=== PATIENT | male | born 1960 | race Caucasian/White ===

== ENCOUNTER 2016-04-24 00:56 | Emergency (ER) | payer BC ==
[~2016-04-24] VITALS: Ht 177.8 cm; Wt 91.2 kg
[~2016-04-24 00:56] MED LIST: ATOR40TA59 PO; CRESTOR20 MG PO; CYCL10TA2 PO; HYDR-971 PO; INSU100I13 SQ; INSU300I SQ; LISI40TA PO; METF10002 PO; NAPR250T2 PO; OMEP20CA9 PO; OMEP20TA PO; ONDA4TAB7 PO; OXYC-244 PO; SERT100T8 PO; SITA100T PO; TAMS0.4C2 PO; TAMS0.4C97 PO
[2016-04-24 01:48] LABS: BASO # 0.1 x10^3/uL (0.0-0.2); BASO % 1 % (0-3); EOS % 4 % (0-3); HEMATOCRIT 42.7 % (39.0-53.0); LYMPH # 1.5 x10^3/uL (1.0-4.8); LYMPH % 19 % (24-48); MEAN CORPUSCULAR HEMOGLOBIN 32 pg (25-35); MEAN CORPUSCULAR HGB CONC 35 g/dL (31-37); MEAN CORPUSCULAR VOLUME 92 fL (79-100); MONO % 8 % (0-9); NEUT % 68 % (31-73); PLATELET COUNT 168 x10^3/uL (140-400); RED BLOOD COUNT 4.67 x10^6/uL (4.30-5.70); RED CELL DISTRIBUTION WIDTH 12.5 % (11.5-14.5); WHITE BLOOD COUNT 8.1 x10^3/uL (4.0-11.0)
[2016-04-24 01:59] LABS: CALCIUM 9.3 mg/dL (8.5-10.1); CREATININE 1.1 mg/dL (0.7-1.3); GFR 69.8; POTASSIUM 3.3 mmol/L (3.5-5.1)
--- NOTE | 2016-04-24 03:13 | PHYS DOC ---
Past Medical History Past Medical History: Diabetes-Type II, GERD, High Cholesterol, Hypertension, Kidney Stone, Other Additional Past Medical Histor: CHRONIC BACK PAIN, kidney stones Past Surgical History: Other Additional Past Surgical Histo: lithotripsy, back Alcohol Use: Heavy Additional Information: drinking approx 1/5 whiskey weekly Drug Use: Marijuana Adult General Chief Complaint Chief Complaint: BLOOD SUGAR PROBLEM HPI HPI Patient is a 56 year old male who presents by EMS for fatigue and altered mental status. His called EMS for concern of low blood sugar. He is on a long acting insulin only and has had a few episodes of hypoglycemia like this. He becomes sleepy and clammy. EMS arrived and he had a blood sugar in the 50s, of which she was given D50 IV with improvement of blood sugar to 110s. He denies headache, vision changes, numbness, tingling, weakness, chest pain, abdominal pain, nausea or vomiting, diarrhea, dysuria. He does mention having some bloody urine and flank pain over the past 2 days, but he has been asymptomatic of this today. He did not come here for evaluation of kidney stones, but he thinks this is related to his chronic kidney stones. He does not want to be evaluated for this as his symptoms are controlled. Review of Systems Review of Systems Constitutional: Denies fever or chills [] Eyes: Denies change in visual acuity, redness, or eye pain [] HENT: Denies nasal congestion or sore throat [] Respiratory: Denies cough or shortness of breath [] Cardiovascular: No additional information not addressed in HPI [] GI: Denies abdominal pain, nausea, vomiting, bloody stools or diarrhea [] : Denies dysuria or hematuria [] Musculoskeletal: Denies back pain or joint pain [] Integument: Denies rash or skin lesions [] Neurologic: Denies headache, focal weakness or sensory changes [] Endocrine: Denies polyuria or polydipsia [] Allergies Allergies Allergies Coded Allergies Type Severity Reaction Last Updated Verified Sulfa (Sulfonamide Antibiotics) Allergy Severe ADLER HIMA SYNDROME Yes Physical Exam Physical Exam Constitutional: Well developed, well nourished, no acute distress, non-toxic appearance. [] HENT: Normocephalic, atraumatic, bilateral external ears normal, oropharynx moist, no oral exudates, nose normal. [] Eyes: PERRLA, EOMI. [] Neck: Normal range of motion, supple. [] Cardiovascular:Heart rate regular rhythm [] Lungs & Thorax: Bilateral breath sounds clear to auscultation [] Abdomen: Bowel sounds normal, soft, no tenderness. [] Skin: Warm, dry, no erythema, no rash. [] Back: No tenderness, no CVA tenderness. [] Extremities: ROM intact, no edema. [] Neurologic: Alert and oriented X 3, normal motor function, normal sensory function, no focal deficits noted, cranial nerves II through XII intact. [] Psychologic: Affect normal, judgement normal, mood normal. [] Current Patient Data Vital Signs Vital Signs Date Time Temp Pulse Resp B/P Pulse Ox O2 Delivery O2 Flow Rate FiO2 04/24/16 03:23 95 20 137/93 98 04/24/16 00:56 97.0 Room Air 97.0 Lab Values Laboratory Tests Test 04/24/16 01:01 04/24/16 01:40 04/24/16 03:06 Glucose (Fingerstick) 116mg/dL (70-99) H 200mg/dL (70-99) H White Blood Count 8.1x10^3/uL (4.0-11.0) Red Blood Count 4.67x10^6/uL (4.30-5.70) Hemoglobin 15.0g/dL (13.0-17.5) Hematocrit 42.7% (39.0-53.0) Mean Corpuscular Volume 92fL (79-100) Mean Corpuscular Hemoglobin 32pg (25-35) Mean Corpuscular Hemoglobin Concent 35g/dL (31-37) Red Cell Distribution Width 12.5% (11.5-14.5) Platelet Count 168x10^3/uL (140-400) Neutrophils (%) (Auto) 68% (31-73) Lymphocytes (%) (Auto) 19% (24-48) L Monocytes (%) (Auto) 8% (0-9) Eosinophils (%) (Auto) 4% (0-3) H Basophils (%) (Auto) 1% (0-3) Neutrophils # (Auto) 5.5x10^3uL (1.8-7.7) Lymphocytes # (Auto) 1.5x10^3/uL (1.0-4.8) Monocytes # (Auto) 0.6x10^3/uL (0.0-1.1) Eosinophils # (Auto) 0.3x10^3/uL (0.0-0.7) Basophils # (Auto) 0.1x10^3/uL (0.0-0.2) Sodium Level 139mmol/L (136-145) Potassium Level 3.3mmol/L (3.5-5.1) L Chloride Level 103mmol/L (98-107) Carbon Dioxide Level 23mmol/L (21-32) Anion Gap 13 (6-14) Blood Urea Nitrogen 33mg/dL (8-26) H Creatinine 1.1mg/dL (0.7-1.3) Estimated GFR (Cockcroft-Gault) 69.8 Glucose Level 113mg/dL (70-99) H Calcium Level 9.3mg/dL (8.5-10.1) Laboratory Tests 04/24/16 01:40 Laboratory Tests 04/24/16 01:40 Course & Med Decision Making Course & Med Decision Making Pertinent Labs and Imaging studies reviewed. (See chart for details) Upon arrival here, he is alert. He was given food to treat hypoglycemia. Laboratory evaluation is unremarkable. He has maintained a normal blood glucose during his ED stay. He would like to go home and monitor his blood sugar closely. He will follow-up with his primary care doctor for diabetic management. Return precautions discussed. He and understand and agree with plan. Dragon Disclaimer Dragon Disclaimer This electronic medical record was generated, in whole or in part, using a voice recognition dictation system. Departure Departure Impression: Primary Impression: Hypoglycemia Disposition: HOME, SELF-CARE Condition: STABLE Referrals: MARLENI ANGELA (PCP) Patient Instructions: Hypoglycemia, [id number] Additional Instructions: Follow-up with your primary care doctor. Return for any concerns. Su SCHAFFER MD Apr 24, 2016 03:13
[2016-04-24 03:23] VITALS: BP 137/93
== END 2016-04-24 03:23 | disposition home or self-care (01) ==
LOC: ER 01:49
DX: E11.649 Type 2 diabetes mellitus with hypoglycemia without coma (principal); K21.9 Gastro-esophageal reflux disease without esophagitis; E78.00 Pure hypercholesterolemia, unspecified; I10 Essential (primary) hypertension; G89.29 Other chronic pain; F12.10 Cannabis abuse, uncomplicated; Z88.2 Allergy status to sulfonamides
CPT/HCPCS: 36415; 80048; 82947; 85027; 99284

== ENCOUNTER 2016-05-29 22:00 | Emergency (ER) | payer BC ==
[~2016-05-29] VITALS: Ht 180.3 cm; Wt 87.1 kg
[2016-05-29] MEDS ORDERED: IV NORMAL SALINE 1000ML BAG 1,000 ML IV SCH (22:06)
[2016-05-29 22:29] LABS: BILIRUBIN,URINE NEGATIVE (NEG); GLUCOSE,URINE NEGATIVE (NEG); NITRITE,URINE NEGATIVE (NEG); PH,URINE 5.5; PROTEIN,URINE NEGATIVE (NEG-TRACE)
[2016-05-29 22:36] LABS: BASO % 1 % (0-3); EOS % 5 % (0-3); HEMATOCRIT 43.2 % (39.0-53.0); HEMOGLOBIN 14.9 g/dL (13.0-17.5); LYMPH # 0.5 x10^3/uL (1.0-4.8); LYMPH % 7 % (24-48); MEAN CORPUSCULAR HEMOGLOBIN 32 pg (25-35); MEAN CORPUSCULAR HGB CONC 35 g/dL (31-37); MEAN CORPUSCULAR VOLUME 92 fL (79-100); MONO % 5 % (0-9); NEUT % 83 % (31-73); PLATELET COUNT 179 x10^3/uL (140-400); RED BLOOD COUNT 4.68 x10^6/uL (4.30-5.70); RED CELL DISTRIBUTION WIDTH 12.8 % (11.5-14.5); WHITE BLOOD COUNT 6.5 x10^3/uL (4.0-11.0)
[2016-05-29 22:43] LABS: RBC,URINE 20-40 /HPF (0-2)
[2016-05-29 22:44] LABS: BACTERIA,URINE 0 /HPF (0-FEW); SQUAMOUS EPITHELIAL CELL,UR OCC /LPF; WBC,URINE OCC /HPF (0-4)
[2016-05-29 22:47] LABS: CALCIUM 9.6 mg/dL (8.5-10.1); GFR 77.9; POTASSIUM 4.3 mmol/L (3.5-5.1)
[2016-05-29 22:53] LABS: ALBUMIN 3.8 g/dL (3.4-5.0); TOTAL BILIRUBIN 1.3 mg/dL (0.2-1.0); TOTAL PROTEIN 7.5 g/dL (6.4-8.2)
[2016-05-29] MEDS ORDERED: HYDROMORPHONE 2 MG/ML VIAL. IV ONE (23:15)
[2016-05-29] MEDS ORDERED: ONDANSETRON PF 4 MG/2 ML VIAL. IV ONE (23:15)
[2016-05-29] MEDS ORDERED: KETOROLAC 15 MG/ML VIAL. IV ONE (23:15)
--- NOTE | 2016-05-29 23:51 | RAD ---
CT abdomen pelvis without contrast dated 05/29/2016. PROCEDURE HISTORY Right flank pain and hematuria. TECHNIQUE Contiguous axial imaging of the abdomen and pelvis performed without the administration of intravenous contrast.Exposure: One or more of the following individualized dose reduction techniques were utilized for this exam: 1. Automated exposure control. 2. Adjustment of the mA and/or kV according to patient size. 3. Use of iterative reconstruction technique. COMPARISON None available at this time FINDINGS Limited images of lung bases are clear. Heart size within normal limits. No pleural or pericardial effusion. Small noncalcified pulmonary nodule left lower lobe on image 17 measures 3 millimeters, nonspecific. Solid abdominal viscera not well evaluated in the absence of contrast material. No apparent attenuation abnormality of the liver or spleen. Pancreas, adrenal glands, gallbladder unremarkable. There is focal cortical scarring at the mid to upper pole right kidney with partially calcified nodule that measures 24 Hounsfield units. Low density lesions of the upper and lower pole, most consistent with cysts. Additional indeterminate nodule medially measuring about 8 millimeters and mean Hounsfield units of 7 seen. There are 2 small stones at the lower pole. On the left, there is a 9 millimeter calcific stone within the mid pole infundibulum. Two additional smaller stones at the left kidney lower pole. No calculus identified along the course of either ureter. Unopacified GI tract normal in caliber and contour. No focal bowel wall thickening. No inflammatory stranding in the mesenteric. No ascites or lymphadenopathy. Appendix within normal limits in caliber. Images of pelvis show nondistended urinary bladder. No free pelvic fluid or pelvic lymphadenopathy. Bone windows show no acute findings. Multilevel spondylosis. IMPRESSION - Bilateral nephrolithiasis, nonobstructive. There is a 9 millimeter calcific stone at the mid pole infundibulum on the left. - Indeterminate low density lesions of the right kidney. Suggest direct comparison a prior exam. Alternatively, a pre and post contrast renal CT could better evaluate. - Small pericardial effusion. Electronically signed by: Chavez Springer (May 29, 2016 23:49:46)
[2016-05-30] MEDS ORDERED: HYDR-2678 PO (00:20)
--- NOTE | 2016-05-30 00:20 | PHYS DOC ---
Past Medical History Past Medical History: Diabetes-Type II, GERD, High Cholesterol, Hypertension, Kidney Stone, Other Additional Past Medical Histor: CHRONIC BACK PAIN, kidney stones Past Surgical History: Other Additional Past Surgical Histo: lithotripsy, back Alcohol Use: Heavy Drug Use: Marijuana Adult General Chief Complaint Chief Complaint: FLANK PAIN HPI HPI Patient is a 56 year old gentleman who presents here today complaining of right flank pain. Patient reports it feels like his prior kidney stones. Patient reports that he was here on March 07 and was diagnosed with a 4 mm stone. Patient reports she's had hematuria for approximately 1-2 days of intermittent pain for the same time. Patient denies any fevers shakes chills. Patient has any diarrhea. Patient is nauseous and has had 1-2 episodes of vomiting. Patient reports his Abdominal Discomfort and Is Right Flank Radiating to His Right Lower Quadrant. Patient Reports Took One Hydrocodone Pressure Whenever Prior to Arrival. Patient Reports She Smokes Marijuana Occasionally. Patient Has Any Alcohol Use. Patient Is a History of Hypertension and Diabetes. Patient Has Had No Abdominal Surgeries. Patient's physical exam is unremarkable except for tenderness to palpation to his right flank and right lower quadrant region. Patient's abdomen is otherwise soft nondistended no rebound or guarding. Patient is not exhibiting any signs or symptoms I be consistent with an acute surgical abdomen. Patient had labs and a CT scan done in the ED. Patient's labs were unremarkable except for RBCs in his urine. Patient's CT scan of his abdomen and pelvis did not reveal any evidence of hydronephrosis or obstructive renal calculi. I discussed with the patient the CT report and I will give him a copy. It does appear that the patient knows about the cysts in his right kidney as well as a large stone in his left kidney. Patient will has an appointment next Tuesday to see his urologist. Patient was given a copy of his CT scan to take with him for review with his urologist. While in the ED the patient was given a shot of Toradol Dilaudid and Zofran as well as saline. Patient is currently pain-free and feels very comfortable with the plan to be discharged home and to follow up with his primary care physician. Review of Systems Review of Systems Constitutional: Denies fever or chills [] Eyes: Denies change in visual acuity, redness, or eye pain [] HENT: Denies nasal congestion or sore throat [] All other review systems are negative except as documented in the history of present illness portion. Current Medications Current Medications Current Medications Medications (Trade) Dose Ordered Sig/Nury Start Time Stop Time Status Last Admin Dose Admin Hydromorphone HCl (Dilaudid) 1 mg 1X ONCE 05/29/16 23:15 05/29/16 23:16 DC 05/29/16 23:21 1 MG Ketorolac Tromethamine (Toradol) 15 mg 1X ONCE 05/29/16 23:15 05/29/16 23:16 DC 05/29/16 23:20 15 MG Ondansetron HCl (Zofran) 4 mg 1X ONCE 05/29/16 23:15 05/29/16 23:16 DC 05/29/16 23:19 4 MG Sodium Chloride (Iv Sodium Chloride 0.9% 1000ml Bag) 1,000 ml @ 1,000 mls/hr Q1H 05/29/16 22:06 05/29/16 23:05 DC 05/29/16 22:25 1,000 MLS/HR Allergies Allergies Allergies Coded Allergies Type Severity Reaction Last Updated Verified Sulfa (Sulfonamide Antibiotics) Allergy Severe ADLER HIMA SYNDROME Yes Physical Exam Physical Exam Constitutional: Well developed, well nourished, no acute distress, non-toxic appearance. [] HENT: Normocephalic, atraumatic, bilateral external ears normal, oropharynx moist, no oral exudates, nose normal. [] Eyes: PERRLA, EOMI, conjunctiva normal, no discharge. [] Neck: Normal range of motion, no tenderness, supple, no stridor. [] Cardiovascular:Heart rate regular rhythm, no murmur [] Lungs & Thorax: Bilateral breath sounds clear to auscultation [] Abdomen: Bowel sounds normal, soft,, no masses, no pulsatile masses. [] Skin: Warm, dry, no erythema, no rash. [] Back: No tenderness, no CVA tenderness. [] Extremities: No tenderness, no cyanosis, no clubbing, ROM intact, no edema. [] Neurologic: Alert and oriented X 3, normal motor function, normal sensory function, no focal deficits noted. [] Psychologic: Affect normal, judgement normal, mood normal. [] Current Patient Data Vital Signs Vital Signs Date Time Temp Pulse Resp B/P Pulse Ox O2 Delivery O2 Flow Rate FiO2 05/29/16 23:03 113 11 125/81 99 Room Air 05/29/16 22:15 98.3 98.3 Lab Values Laboratory Tests Test 05/29/16 22:07 05/29/16 22:23 Urine Collection Type Unknown Urine Color Yellow Urine Clarity Clear Urine pH 5.5 Urine Specific [place] 1.025 Urine Protein Negativemg/dL (NEG-TRACE) Urine Glucose (UA) Negativemg/dL (NEG) Urine Ketones (Stick) Negativemg/dL (NEG) Urine Blood Moderate (NEG) Urine Nitrite Negative (NEG) Urine Bilirubin Negative (NEG) Urine Urobilinogen Dipstick 1.0mg/dL (0.2 mg/dL) Urine Leukocyte Esterase Negative (NEG) Urine RBC 20-40/HPF (0-2) Urine WBC Occ/HPF (0-4) Urine Squamous Epithelial Cells Occ/LPF Urine Bacteria 0/HPF (0-FEW) Urine Mucus Mod/LPF White Blood Count 6.5x10^3/uL (4.0-11.0) Red Blood Count 4.68x10^6/uL (4.30-5.70) Hemoglobin 14.9g/dL (13.0-17.5) Hematocrit 43.2% (39.0-53.0) Mean Corpuscular Volume 92fL (79-100) Mean Corpuscular Hemoglobin 32pg (25-35) Mean Corpuscular Hemoglobin Concent 35g/dL (31-37) Red Cell Distribution Width 12.8% (11.5-14.5) Platelet Count 179x10^3/uL (140-400) Neutrophils (%) (Auto) 83% (31-73) H Lymphocytes (%) (Auto) 7% (24-48) L Monocytes (%) (Auto) 5% (0-9) Eosinophils (%) (Auto) 5% (0-3) H Basophils (%) (Auto) 1% (0-3) Neutrophils # (Auto) 5.4x10^3uL (1.8-7.7) Lymphocytes # (Auto) 0.5x10^3/uL (1.0-4.8) L Monocytes # (Auto) 0.3x10^3/uL (0.0-1.1) Eosinophils # (Auto) 0.3x10^3/uL (0.0-0.7) Basophils # (Auto) 0.0x10^3/uL (0.0-0.2) Sodium Level 139mmol/L (136-145) Potassium Level 4.3mmol/L (3.5-5.1) Chloride Level 102mmol/L (98-107) Carbon Dioxide Level 21mmol/L (21-32) Anion Gap 16 (6-14) H Blood Urea Nitrogen 23mg/dL (8-26) Creatinine 1.0mg/dL (0.7-1.3) Estimated GFR (Cockcroft-Gault) 77.9 BUN/Creatinine Ratio 23 (6-20) H Glucose Level 174mg/dL (70-99) H Calcium Level 9.6mg/dL (8.5-10.1) Total Bilirubin 1.3mg/dL (0.2-1.0) H Aspartate Amino Transferase (AST) 25U/L (15-37) Alanine Aminotransferase (ALT) 21U/L (16-63) Alkaline Phosphatase 142U/L (46-116) H Total Protein 7.5g/dL (6.4-8.2) Albumin 3.8g/dL (3.4-5.0) Albumin/Globulin Ratio 1.0 (1.0-1.7) Lipase 90U/L (73-393) Laboratory Tests 05/29/16 22:23 Laboratory Tests 05/29/16 22:23 EKG EKG [] Radiology/Procedures Radiology/Procedures [] Course & Med Decision Making Course & Med Decision Making Pertinent Labs and Imaging studies reviewed. (See chart for details) [] Dragon Disclaimer Dragon Disclaimer This electronic medical record was generated, in whole or in part, using a voice recognition dictation system. Departure Departure Impression: Primary Impression: Renal calculus, right Disposition: 01 HOME, SELF-CARE Condition: IMPROVED Referrals: MARLENI ANGELA (PCP) Patient Instructions: Abdominal Pain, Kidney Stones Scripts Hydrocodone/Acetaminophen (Lortab 5-325 mg Tablet)1 Each Tablet1 Tab PO PRN Q6HRS PRN PAIN #14 TAB Prov:TAMIKO DELANEY MD 05/30/16 TAMIKO DELANEY MD May 30, 2016 00:20
[2016-05-30 00:38] VITALS: BP 128/76
== END 2016-05-30 00:40 | disposition home or self-care (01) ==
LOC: ER 22:00
DX: N20.0 Calculus of kidney (principal); E11.9 Type 2 diabetes mellitus without complications; E78.00 Pure hypercholesterolemia, unspecified; G89.29 Other chronic pain; I10 Essential (primary) hypertension; K21.9 Gastro-esophageal reflux disease without esophagitis; F12.10 Cannabis abuse, uncomplicated; Z88.2 Allergy status to sulfonamides
CPT/HCPCS: 36415; 74176; 80053; 81001; 83690; 85027; 96361; 96374; 96375; 99285; J1170; J1885; J2405; J7030

== ENCOUNTER 2016-07-03 17:42 | Observation (INO) | payer BC ==
[~2016-07-03] VITALS: Ht 177.8 cm; Wt 91.3 kg
[~2016-07-03 17:42] MED LIST changes: +HYDR-2678 PO
--- NOTE | 2016-07-03 18:23 | PHYS DOC ---
Past Medical History Past Medical History: Anxiety, Diabetes-Type II, GERD, High Cholesterol, Hypertension, Kidney Stone, Other Additional Past Medical Histor: CHRONIC BACK PAIN Past Surgical History: Other Additional Past Surgical Histo: lithotripsy, back,CYSTOSCOPY W/ KIDENY STONE REMOVAL & STENT Alcohol Use: Heavy Additional Information: 2 DRINKS LAST NIGHT Drug Use: Marijuana Adult General Chief Complaint Chief Complaint: NEURO SYMPTOMS/DEFICITS HPI HPI 46-year-old male with a history of type 2 diabetes hypertension and high cholesterol presenting to the emergency department today with generalized weakness and slurred speech with intermittent confusion over the past 4 or 5 days. The patient was recently started on diazepam and buspirone and that is when the patient's symptoms started according to the patient's who is here with him today. She reports him being extra sleepy. Both the patient and his deny him having unilateral focal weakness. His initial symptoms started approximately a week ago however over the past 2-3 days he has been more confused. Location brain/generalized. Duration intermittent. No alleviating factors present. Review of systems is negative for chest pain shortness of breath abdominal pain nausea vomiting diaphoresis fevers or chills. All other review of systems is negative unless otherwise noted in history of present illness. Review of Systems Review of Systems SEE ABOVE. Current Medications Current Medications Current Medications Medications (Trade) Dose Ordered Sig/Nury Start Time Stop Time Status Last Admin Dose Admin Sodium Chloride (Iv Sodium Chloride 0.9% 1000ml Bag) 1,000 ml @ 1,000 mls/hr 1X ONCE 07/03/16 18:30 07/03/16 19:29 DC 07/03/16 18:40 1,000 MLS/HR Allergies Allergies Allergies Coded Allergies Type Severity Reaction Last Updated Verified Sulfa (Sulfonamide Antibiotics) Allergy Severe ADLER HIMA SYNDROME Yes Physical Exam Physical Exam Constitutional: Well developed, well nourished, no acute distress, non-toxic appearance. HENT: Normocephalic, atraumatic, bilateral external ears normal, oropharynx moist, no oral exudates, nose normal. [] Eyes: PERRLA, EOMI, conjunctiva normal, no discharge. [] Neck: Normal range of motion, no tenderness, supple, no stridor. Cardiovascular:Heart rate regular rhythm, no murmur [] Lungs & Thorax: Bilateral breath sounds clear to auscultation Abdomen: Bowel sounds normal, soft, no tenderness, no masses, no pulsatile masses. [] Skin: Warm, dry, no erythema, no rash. [] Back: No tenderness, no CVA tenderness. Extremities: No tenderness, no cyanosis, no clubbing, ROM intact, no edema. [] Neurologic: Mental status: Somnolent but opens his eyes spontaneously. The patient drifts in and out of confusion even during the examination. He is able to stand without assistance. Cranial nerves: Extraocular movements intact, eyebrows wero bilaterally smile symmetric, uvula elevation, shoulder shrug intact, tongue protrusion normal DTRs: 2+ sensation: Unable to assess at this time due to the patient's intermittent confusion. Patient responds to prick sensation in all 4 extremities Strength: 5/5 in upper and lower extremities bilaterally Psychologic: Affect normal, judgement normal, mood normal. Current Patient Data Vital Signs Vital Signs Date Time Temp Pulse Resp B/P Pulse Ox O2 Delivery O2 Flow Rate FiO2 07/03/16 17:45 97.7 107 20 105/74 97 Room Air 97.7 Lab Values Laboratory Tests Test 07/03/16 18:25 White Blood Count 7.2x10^3/uL (4.0-11.0) Red Blood Count 4.20x10^6/uL (4.30-5.70) L Hemoglobin 13.6g/dL (13.0-17.5) Hematocrit 39.6% (39.0-53.0) Mean Corpuscular Volume 94fL (79-100) Mean Corpuscular Hemoglobin 32pg (25-35) Mean Corpuscular Hemoglobin Concent 34g/dL (31-37) Red Cell Distribution Width 13.3% (11.5-14.5) Platelet Count 227x10^3/uL (140-400) Neutrophils (%) (Auto) 66% (31-73) Lymphocytes (%) (Auto) 23% (24-48) L Monocytes (%) (Auto) 8% (0-9) Eosinophils (%) (Auto) 4% (0-3) H Basophils (%) (Auto) 0% (0-3) Neutrophils # (Auto) 4.7x10^3uL (1.8-7.7) Lymphocytes # (Auto) 1.6x10^3/uL (1.0-4.8) Monocytes # (Auto) 0.6x10^3/uL (0.0-1.1) Eosinophils # (Auto) 0.3x10^3/uL (0.0-0.7) Basophils # (Auto) 0.0x10^3/uL (0.0-0.2) Sodium Level 142mmol/L (136-145) Potassium Level 4.1mmol/L (3.5-5.1) Chloride Level 105mmol/L (98-107) Carbon Dioxide Level 25mmol/L (21-32) Anion Gap 12 (6-14) Blood Urea Nitrogen 18mg/dL (8-26) Creatinine 1.4mg/dL (0.7-1.3) H Estimated GFR (Cockcroft-Gault) 52.8 Glucose Level 178mg/dL (70-99) H Serum Osmolality 295mOsm/Kg (279-304) Lactic Acid Level 2.2mmol/L (0.4-2.0) H Calcium Level 9.5mg/dL (8.5-10.1) Total Bilirubin 0.5mg/dL (0.2-1.0) Direct Bilirubin 0.1mg/dL (0.0-0.2) Aspartate Amino Transferase (AST) 21U/L (15-37) Alanine Aminotransferase (ALT) 29U/L (16-63) Alkaline Phosphatase 177U/L (46-116) H Troponin I Quantitative < 0.017ng/mL (0.000-0.055) BQ-Hiu-F-Type Natriuretic Peptide 100pg/mL (0-124) Total Protein 7.5g/dL (6.4-8.2) Albumin 3.6g/dL (3.4-5.0) Lipase 93U/L (73-393) Ethyl Alcohol Level < 10mg/dL (0-10) Laboratory Tests 07/03/16 18:25 Laboratory Tests 07/03/16 18:25 EKG EKG [] Radiology/Procedures Radiology/Procedures [] Course & Med Decision Making Course & Med Decision Making Pertinent Labs and Imaging studies reviewed. (See chart for details) [] 56-year-old male presenting to the emergency department today with slurred speech and intermittent confusion over the past week essentially with a worsening progression slowly. Initial vital signs showed that he was afebrile with tachycardia. Otherwise mild hypotension present. Pertinent physical exam showed negative Kernig sign and negative Brudzinski sign no neck stiffness present. No evidence of petechiae in the lower extremities. It is possible that the patient's use of benzodiazepines mixed with SSRIs have caused the patient's condition though at this point time I feel it is important to rule out stroke. Head CT unremarkable. Blood glucose normal. Blood work sent which was unremarkable other than an elevated lactic acidosis. The patient clinically did not present with suspected infection so did not enter into our sepsis protocol. I did feel the patient was hypovolemic and thus ordered volume resuscitation. I discussed the case with Dr. Bowie who agreed to see the patient. I then admitted the patient to our hospital for further evaluation workup and care. Neurology consult placed. Dragon Disclaimer Dragon Disclaimer This electronic medical record was generated, in whole or in part, using a voice recognition dictation system. Departure Departure Impression: Primary Impression: Confusion Additional Impressions: Weakness Hypovolemia Lactic acidosis Disposition: ADMITTED INPATIENT Admitting Physician: Nicholas Pate Condition: STABLE Referrals: MARLENI ANGELA (PCP) Problem Qualifiers AYAD LEÓN MD Jul 03, 2016 18:22
[2016-07-03] MEDS ORDERED: IV NORMAL SALINE 1000ML BAG 1,000 ML IV ONE (18:30)
[2016-07-03 18:40] LABS: BASO % 0 % (0-3); EOS % 4 % (0-3); HEMATOCRIT 39.6 % (39.0-53.0); HEMOGLOBIN 13.6 g/dL (13.0-17.5); LYMPH # 1.6 x10^3/uL (1.0-4.8); LYMPH % 23 % (24-48); MEAN CORPUSCULAR HEMOGLOBIN 32 pg (25-35); MEAN CORPUSCULAR HGB CONC 34 g/dL (31-37); MEAN CORPUSCULAR VOLUME 94 fL (79-100); MONO % 8 % (0-9); NEUT % 66 % (31-73); PLATELET COUNT 227 x10^3/uL (140-400); RED CELL DISTRIBUTION WIDTH 13.3 % (11.5-14.5); WHITE BLOOD COUNT 7.2 x10^3/uL (4.0-11.0)
[2016-07-03] MEDS ORDERED: ONDANSETRON PF 4 MG/2 ML VIAL. IV PRN ×2 (18:45→19:15)
[2016-07-03] MEDS ORDERED: MORPHINE SULFATE 2 MG/ML DISP.SYRIN. IV PRN (18:45)
--- NOTE | 2016-07-03 18:51 | RAD ---
PQRS STATEMENT One or more of the following individualized dose reduction techniques were utilized for this study: 1.Automated exposure control 2.Adjustment of the mA and/or kV according to patient size 3.Use of iterative reconstruction technique CT HEAD Indication: WEAKNESS, SLURRED SPEECH, MEMORY LOSS X1WEEK
NO PRIORSReason: weakness / Spl. Instructions: / History: COMPARISON: None TECHNIQUE: 5 mm contiguous axial images were obtained from the skull base to the vertex in both bone and soft tissue algorithm. FINDINGS: No abnormal attenuation within the brain parenchyma. No evidence of acute intracranial hemorrhage. No extra-axial fluid collections. No mass effect or midline shift.Ventricular size is appropriate. Basal cisterns are patent. No fractures identified. Globes and orbits are within normal limits. Paranasal sinuses and mastoid air cells are clear. IMPRESSION: No acute intracranial abnormality. Electronically signed by: Nazario Matthews (Jul 03, 2016 18:50:28)
[2016-07-03 19:04] LABS: CALCIUM 9.5 mg/dL (8.5-10.1); CREATININE 1.4 mg/dL (0.7-1.3); GFR 52.8; POTASSIUM 4.1 mmol/L (3.5-5.1)
[2016-07-03 19:09] LABS: ALBUMIN 3.6 g/dL (3.4-5.0); DIRECT BILIRUBIN 0.1 mg/dL (0.0-0.2); TOTAL BILIRUBIN 0.5 mg/dL (0.2-1.0); TOTAL PROTEIN 7.5 g/dL (6.4-8.2)
--- NOTE | 2016-07-03 19:13 | PDOC1 ---
History and Physical Date of Admission Date of Admission 07/03/16 Identification/Chief Complaint Chief Complaint slurry speak, weakness Problems: Source Source: Caregiver, Chart review, Patient History of Present Illness History of Present Illness HPI HPI 46-year-old male with a history of type 2 diabetes hypertension and high cholesterol presenting to the emergency department today with generalized weakness and slurred speech today. Pt is a poor historian. He said he has been taking zoloft for a long time, recently started taking diazempam and burspirone this week, since then , feels weak, less energy, sleep more, low po intake. TOday, He was found slurry speech and more confused. He also c/o right side weakness for 1 month. denies fever,vomiting, but + chills and nausea. also use [place]. Past Medical History Cardiovascular: HTN, Hyperlipidemia GI: GERD Renal/: Other Endocrine: Diabetes Past Surgical History Past Surgical History lithotripsy, back,CYSTOSCOPY W/ KIDENY STONE REMOVAL & STENT Family History Family History: No Significant Social History Smoke: No ALCOHOL: rare Current Problem List Problem List Problems Medical Problems: (1) Confusion Status: Acute (2) Weakness Status: Acute Current Medications Current Medications Current Medications Medications (Trade) Dose Ordered Sig/Nury Start Time Stop Time Status Last Admin Dose Admin Morphine Sulfate 2 mg PRN Q2HR PRN 07/03/16 18:45 07/04/16 18:44 Ondansetron HCl (Zofran) 4 mg PRN Q8HRS PRN 07/03/16 18:45 07/04/16 18:44 Sodium Chloride (Iv Sodium Chloride 0.9% 1000ml Bag) 1,000 ml @ 1,000 mls/hr 1X ONCE 07/03/16 18:30 07/03/16 19:29 07/03/16 18:40 1,000 MLS/HR Allergies Allergies Allergies Coded Allergies Type Severity Reaction Last Updated Verified Sulfa (Sulfonamide Antibiotics) Allergy Severe ADLER HIMA SYNDROME Yes ROS Review of System CONSTITUTIONAL: No fever or chills EYES: No recent changes SKIN: No rash or itching CARDIOVASCULAR: No chest pain, syncope, palpitations, or edema RESPIRATORY: No SOB or cough GASTROINTESTINAL: No nausea, vomiting or abdominal pain NEUROLOGICAL: No headaches or weakness ENDOCRINE: No cold or heat intolerance GENITOURINARY: No urgency or frequency of urination MUSCULOSKELETAL: No back pain or joint pain LYMPHATICS: No enlarged lymph nodes PSYCHIATRIC: No anxiety or depression Physical Exam Physical Exam GEN.: No apparent distress. Alert and oriented. drowsy HEENT: Head is normocephalic, atraumatic NECK: Supple. LUNGS: Clear to auscultation. HEART: RRR, S1, S2 present. Peripheral pulses intact ABDOMEN: Soft, nontender. Positive bowel sounds. EXTREMITIES: Without any cyanosis. NEUROLOGIC: Normal speech, normal tone PSYCHIATRIC: Normal affect, normal mood. SKIN: No ulcerations Vitals Vitals Vital Signs Date Time Temp Pulse Resp B/P Pulse Ox O2 Delivery O2 Flow Rate FiO2 07/03/16 17:45 97.7 107 20 105/74 97 Room Air 97.7 Labs Labs Laboratory Tests Test 07/03/16 18:25 White Blood Count 7.2x10^3/uL (4.0-11.0) Red Blood Count 4.20x10^6/uL (4.30-5.70) Hemoglobin 13.6g/dL (13.0-17.5) Hematocrit 39.6% (39.0-53.0) Mean Corpuscular Volume 94fL (79-100) Mean Corpuscular Hemoglobin 32pg (25-35) Mean Corpuscular Hemoglobin Concent 34g/dL (31-37) Red Cell Distribution Width 13.3% (11.5-14.5) Platelet Count 227x10^3/uL (140-400) Neutrophils (%) (Auto) 66% (31-73) Lymphocytes (%) (Auto) 23% (24-48) Monocytes (%) (Auto) 8% (0-9) Eosinophils (%) (Auto) 4% (0-3) Basophils (%) (Auto) 0% (0-3) Neutrophils # (Auto) 4.7x10^3uL (1.8-7.7) Lymphocytes # (Auto) 1.6x10^3/uL (1.0-4.8) Monocytes # (Auto) 0.6x10^3/uL (0.0-1.1) Eosinophils # (Auto) 0.3x10^3/uL (0.0-0.7) Basophils # (Auto) 0.0x10^3/uL (0.0-0.2) Laboratory Tests Test 07/03/16 18:25 White Blood Count 7.2x10^3/uL (4.0-11.0) Red Blood Count 4.20x10^6/uL (4.30-5.70) Hemoglobin 13.6g/dL (13.0-17.5) Hematocrit 39.6% (39.0-53.0) Mean Corpuscular Volume 94fL (79-100) Mean Corpuscular Hemoglobin 32pg (25-35) Mean Corpuscular Hemoglobin Concent 34g/dL (31-37) Red Cell Distribution Width 13.3% (11.5-14.5) Platelet Count 227x10^3/uL (140-400) Neutrophils (%) (Auto) 66% (31-73) Lymphocytes (%) (Auto) 23% (24-48) Monocytes (%) (Auto) 8% (0-9) Eosinophils (%) (Auto) 4% (0-3) Basophils (%) (Auto) 0% (0-3) Neutrophils # (Auto) 4.7x10^3uL (1.8-7.7) Lymphocytes # (Auto) 1.6x10^3/uL (1.0-4.8) Monocytes # (Auto) 0.6x10^3/uL (0.0-1.1) Eosinophils # (Auto) 0.3x10^3/uL (0.0-0.7) Basophils # (Auto) 0.0x10^3/uL (0.0-0.2) VTE Prophylaxis Ordered VTE Prophylaxis Devices: Yes VTE Pharmacological Prophylaxi: Yes Assessment/Plan Assessment/Plan 1. AMS, slurry speech, confusion , 2/2 interaction of polypharm 2. drug abuse with marijuana 3. HTN 4. dm2 5. anxiety 5. gerd 7. HLD 8. right side weakness 1 month, subjective plan: 1. brain mri 2. neuro consult 2. need home meds 4. avoid sedative meds ssi for now dvt ppx GERRY SINHA MD Jul 03, 2016 19:13
[2016-07-03] MEDS ORDERED: DEXTROSE 50% 25 GM / 50ML DISP.SYRIN. IV PRN (19:15)
[2016-07-03] MEDS ORDERED: ACETAMINOPHEN 325 MG TABLET. PO PRN (19:15)
[2016-07-03] MEDS ORDERED: hydrALAZINE 20 MG/ML VIAL. IVP PRN (19:15)
[2016-07-03] MEDS ORDERED: GADOBUTROL 10 MMOL/10 ML VIAL IV ONE (20:30)
--- NOTE | 2016-07-03 20:31 | RAD ---
BRAIN WO/W CONTRAST Indication: NO PRIORS..GAVE 9ML GADAVIST...PT C/O CONFUSION AND GENERALIZED WEAKNESS...ECT 4696 Reason: INTERMITTENT CONFUSION AND SLURRED SPEECH EVAL FOR STROKE / Spl. Instructions: / History: COMPARISON: CT head from earlier the same date TECHNIQUE: Axial diffusion weighted imaging was obtained. Additional sagittal T1, axial T1, axial FLAIR, and axial T2 weighted imaging of the brain was also performed. Postcontrast T1 weighted imaging was also performed after intravenous administration of gadolinium based contrast. FINDINGS: There are few small foci of FLAIR signal hyperintensity in the periventricular white matter but these are nonspecific and probably related to sequelae of mild chronic small vessel ischemic disease. No abnormal intracranial enhancement. No evidence of acute intracranial hemorrhage. No restricted diffusion to indicate acute infarct. No extra-axial fluid collections. No midline shift or mass effect. Ventricular size is appropriate. Midline structures have a normal anatomic configuration. Pituitary gland and infundibulum are unremarkable. Basal cisterns are patent. Arterial flow voids at the skull base and major dural venous sinuses are maintained. Globes and orbits are unremarkable. There is very mild mucosal thickening of the ethmoid air cells. IMPRESSION: No acute intracranial abnormality. No abnormal enhancement or mass. Electronically signed by: Nazario Matthews (Jul 03, 2016 20:30:19)
[2016-07-03 21:00] VITALS: BP 118/73
[2016-07-03] MEDS: INSULIN ASPART 300 UNITS/3 ML INSULN.PEN SQ SCH (21:00)
[2016-07-03 21:21] LABS: BILIRUBIN,URINE NEGATIVE (NEG); GLUCOSE,URINE NEGATIVE (NEG); NITRITE,URINE NEGATIVE (NEG); PH,URINE 5.5; PROTEIN,URINE NEGATIVE (NEG-TRACE); UROBILINOGEN,URINE 0.2 mg/dL (0.2 mg/dL)
[2016-07-03 21:28] LABS: BARBITURATES NEG (NEG); BENZODIAZEPINES POS (NEG); CANNABINOIDS POS (NEG); COCAINE NEG (NEG); METHADONE NEG (NEG); OPIATES NEG (NEG); PHENCYCLIDINE NEG (NEG)
[2016-07-03 21:29] LABS: ETHANOL, URINE NEG (NEG)
[2016-07-03 21:58] LABS: BACTERIA,URINE FEW /HPF (0-FEW); RBC,URINE 20-40 /HPF (0-2); SQUAMOUS EPITHELIAL CELL,UR FEW /LPF
[2016-07-03] MEDS ORDERED: LISI10TA2 PO (22:38)
[2016-07-03] MEDS ORDERED: SENN8.6T3 (22:38)
[2016-07-03] MEDS ORDERED: MECL25TA3 (22:38)
[2016-07-03] MEDS ORDERED: DIAZ5TAB4 PO (22:38)
[2016-07-03] MEDS ORDERED: GABA100C6 PO (22:38)
[2016-07-03] MEDS ORDERED: BUPR300T4 (22:38)
[2016-07-03] MEDS ORDERED: ROSUVASTATIN CA20 MG PO (22:38)
[2016-07-03] MEDS ORDERED: METF100010 (22:38)
[2016-07-03] MEDS ORDERED: TRAZ50TA15 (22:38)
[2016-07-03 23:00] VITALS: BP 118/73
[2016-07-04 03:00] VITALS: BP 131/84
[2016-07-04] MEDS ORDERED: BUPR150T6 PO (03:00)
[2016-07-04] MEDS ORDERED: HYOS0.126 SL (03:00)
[2016-07-04] MEDS ORDERED: OMEP40CA5 PO (03:04)
[2016-07-04 05:17] LABS: BASO # 0.1 x10^3/uL (0.0-0.2); BASO % 2 % (0-3); EOS % 5 % (0-3); HEMATOCRIT 37.1 % (39.0-53.0); HEMOGLOBIN 12.6 g/dL (13.0-17.5); LYMPH # 1.8 x10^3/uL (1.0-4.8); LYMPH % 28 % (24-48); MEAN CORPUSCULAR HEMOGLOBIN 32 pg (25-35); MEAN CORPUSCULAR HGB CONC 34 g/dL (31-37); MEAN CORPUSCULAR VOLUME 95 fL (79-100); MONO % 8 % (0-9); NEUT % 58 % (31-73); PLATELET COUNT 207 x10^3/uL (140-400); RED BLOOD COUNT 3.92 x10^6/uL (4.30-5.70); RED CELL DISTRIBUTION WIDTH 13.7 % (11.5-14.5); WHITE BLOOD COUNT 6.2 x10^3/uL (4.0-11.0)
[2016-07-04 05:54] LABS: CALCIUM 8.7 mg/dL (8.5-10.1); CREATININE 1.4 mg/dL (0.7-1.3); GFR 52.8; POTASSIUM 4.1 mmol/L (3.5-5.1)
[2016-07-04] MEDS: INSULIN ASPART 300 UNITS/3 ML INSULN.PEN SQ SCH ×2 (07:30→11:30)
[2016-07-04 07:39] VITALS: BP 101/65
[2016-07-04] MEDS ORDERED: POTA10TA10 PO (08:25)
--- NOTE | 2016-07-04 09:19 | RAD ---
Portable AP upright view CXR: Clinical indications: CVA. Weakness. Comparison: January 20, 2016. Findings: No acute lung infiltrate or pleural effusion or pulmonary edema or lung mass or pneumothorax is seen. The heart size, pulmonary vasculature, mediastinum and both darling are unremarkable. Impression: No acute radiographic abnormality is seen.
[2016-07-04 10:37] VITALS: BP 134/86
[2016-07-04] MEDS ORDERED: HYDROCODONE/APAP 5/325MG TABLET. PO PRN (11:45)
[2016-07-04] MEDS ORDERED: SENNOSIDES 8.6 MG TABLET PO PRN (11:45)
[2016-07-04] MEDS ORDERED: NAPROXEN 250 MG TABLET PO PRN (11:45)
--- NOTE | 2016-07-04 12:29 | EKG ---
[facility] [address] [place] [address] Test Date: 2016-07-03 Test Time: 18:24:46 Pat Name: SARI BELTRE Department: Room: Gender: M [employer] Tender: : 1960 Requested By: AYAD LEÓN Order Number: [id number] Reading MD: Measurements Intervals [place] Rate: 86 P: 38 [place]: 156 QRS: 15 QRSD: 92 T: 19 QT: 352 QTc: 424 Interpretive Statements SINUS RHYTHM NO SPECIFIC ECG ABNORMALITIES RI6.01 No previous ECG available for comparison
[2016-07-04 12:37] VITALS: BP 134/86
[2016-07-04] MEDS ORDERED: PANTOPRAZOLE 40 MG TABLET.DR. PO SCH (13:00)
[2016-07-04] MEDS ORDERED: TAMSULOSIN 0.4 MG CAP.ER.24H. PO SCH (13:00)
[2016-07-04] MEDS ORDERED: LISINOPRIL 10 MG TABLET PO SCH (13:00)
[2016-07-04] MEDS ORDERED: POTASSIUM CHLORIDE 20 MEQ TABLET.ER. PO SCH (13:00)
[2016-07-04] MEDS ORDERED: SERTRALINE 50 MG TABLET. PO SCH (13:00)
[2016-07-04] MEDS ORDERED: LINAGLIPTIN 5 MG TABLET PO SCH (13:00)
[2016-07-04] MEDS ORDERED: IV NORMAL SALINE 1000ML BAG 1,000 ML IV ONE (13:00)
--- NOTE | 2016-07-04 13:03 | PDOC ---
PROGRESS NOTES Chief Complaint Chief Complaint 1. AMS, slurry speech, confusion , 2/2 interaction of polypharm 2. drug abuse with marijuana 3. HTN 4. dm2 5. anxiety 5. gerd 7. HLD 8. right side weakness 1 month, subjective 9. JACEY, vasomotor plan: 1. brain mri neg 2. neuro consult pending 2. need home meds 4. avoid sedative meds, hold most sedative meds, only restart zoloft for now hold naproxen, ivf ssi for now lantus 10u qhs, SSI dvt ppx dc tmr History of Present Illness History of Present Illness cr 1.4 still very sleepy Vitals Vitals Vital Signs Date Time Temp Pulse Resp B/P Pulse Ox O2 Delivery O2 Flow Rate FiO2 07/04/16 12:37 93 134/86 07/04/16 10:37 97.5 20 98 Room Air 97.5 Physical Exam General: Alert, Oriented X3, Cooperative Heart: Regular rate, Normal S1 Lungs: Clear Abdomen: Normal bowel sounds, Soft Extremities: No clubbing, No cyanosis Labs LABS Laboratory Tests Test 07/03/16 18:25 07/03/16 21:10 07/03/16 21:15 07/04/16 04:34 White Blood Count 7.2x10^3/uL (4.0-11.0) Red Blood Count 4.20x10^6/uL (4.30-5.70) Hemoglobin 13.6g/dL (13.0-17.5) Hematocrit 39.6% (39.0-53.0) Mean Corpuscular Volume 94fL (79-100) Mean Corpuscular Hemoglobin 32pg (25-35) Mean Corpuscular Hemoglobin Concent 34g/dL (31-37) Red Cell Distribution Width 13.3% (11.5-14.5) Platelet Count 227x10^3/uL (140-400) Neutrophils (%) (Auto) 66% (31-73) Lymphocytes (%) (Auto) 23% (24-48) Monocytes (%) (Auto) 8% (0-9) Eosinophils (%) (Auto) 4% (0-3) Basophils (%) (Auto) 0% (0-3) Neutrophils # (Auto) 4.7x10^3uL (1.8-7.7) Lymphocytes # (Auto) 1.6x10^3/uL (1.0-4.8) Monocytes # (Auto) 0.6x10^3/uL (0.0-1.1) Eosinophils # (Auto) 0.3x10^3/uL (0.0-0.7) Basophils # (Auto) 0.0x10^3/uL (0.0-0.2) Sodium Level 142mmol/L (136-145) 143mmol/L (136-145) Potassium Level 4.1mmol/L (3.5-5.1) 4.1mmol/L (3.5-5.1) Chloride Level 105mmol/L (98-107) 107mmol/L (98-107) Carbon Dioxide Level 25mmol/L (21-32) 26mmol/L (21-32) Anion Gap 12 (6-14) 10 (6-14) Blood Urea Nitrogen 18mg/dL (8-26) 17mg/dL (8-26) Creatinine 1.4mg/dL (0.7-1.3) 1.4mg/dL (0.7-1.3) Estimated GFR (Cockcroft-Gault) 52.8 52.8 Glucose Level 178mg/dL (70-99) 156mg/dL (70-99) Serum Osmolality 295mOsm/Kg (279-304) Lactic Acid Level 2.2mmol/L (0.4-2.0) Calcium Level 9.5mg/dL (8.5-10.1) 8.7mg/dL (8.5-10.1) Total Bilirubin 0.5mg/dL (0.2-1.0) Direct Bilirubin 0.1mg/dL (0.0-0.2) Aspartate Amino Transf (AST/SGOT) 21U/L (15-37) Alanine Aminotransferase (ALT/SGPT) 29U/L (16-63) Alkaline Phosphatase 177U/L (46-116) Troponin I Quantitative < 0.017ng/mL (0.000-0.055) CT-Oml-O-Type Natriuretic Peptide 100pg/mL (0-124) Total Protein 7.5g/dL (6.4-8.2) Albumin 3.6g/dL (3.4-5.0) Lipase 93U/L (73-393) Ethyl Alcohol Level < 10mg/dL (0-10) Urine Collection Type Unknown Urine Color Yellow Urine Clarity Clear Urine pH 5.5 Urine Specific [place] 1.020 Urine Protein Negativemg/dL (NEG-TRACE) Urine Glucose (UA) Negativemg/dL (NEG) Urine Ketones (Stick) Negativemg/dL (NEG) Urine Blood Large (NEG) Urine Nitrite Negative (NEG) Urine Bilirubin Negative (NEG) Urine Urobilinogen Dipstick 0.2mg/dL (0.2 mg/dL) Urine Leukocyte Esterase Negative (NEG) Urine RBC 20-40/HPF (0-2) Urine WBC 1-4/HPF (0-4) Urine Squamous Epithelial Cells Few/LPF Urine Bacteria Few/HPF (0-FEW) Urine Hyaline Casts Many/HPF Urine Mucus Mod/LPF Urine Opiates Screen Neg (NEG) Urine Methadone Screen Neg (NEG) Urine Barbiturates Neg (NEG) Urine Phencyclidine Screen Neg (NEG) Urine Amphetamine/Methamphetamine Neg (NEG) Urine Benzodiazepines Screen Pos (NEG) Urine Cocaine Screen Neg (NEG) Urine Cannabinoids Screen Pos (NEG) Urine Ethyl Alcohol Neg (NEG) Glucose (Fingerstick) 104mg/dL (70-99) Test 07/04/16 04:39 07/04/16 07:42 07/04/16 11:47 White Blood Count 6.2x10^3/uL (4.0-11.0) Red Blood Count 3.92x10^6/uL (4.30-5.70) Hemoglobin 12.6g/dL (13.0-17.5) Hematocrit 37.1% (39.0-53.0) Mean Corpuscular Volume 95fL (79-100) Mean Corpuscular Hemoglobin 32pg (25-35) Mean Corpuscular Hemoglobin Concent 34g/dL (31-37) Red Cell Distribution Width 13.7% (11.5-14.5) Platelet Count 207x10^3/uL (140-400) Neutrophils (%) (Auto) 58% (31-73) Lymphocytes (%) (Auto) 28% (24-48) Monocytes (%) (Auto) 8% (0-9) Eosinophils (%) (Auto) 5% (0-3) Basophils (%) (Auto) 2% (0-3) Neutrophils # (Auto) 3.6x10^3uL (1.8-7.7) Lymphocytes # (Auto) 1.8x10^3/uL (1.0-4.8) Monocytes # (Auto) 0.5x10^3/uL (0.0-1.1) Eosinophils # (Auto) 0.3x10^3/uL (0.0-0.7) Basophils # (Auto) 0.1x10^3/uL (0.0-0.2) Glucose (Fingerstick) 168mg/dL (70-99) 187mg/dL (70-99) Review of Systems Review of Systems no fever, chills, sob or chest pain Assessment and Plan Assessmemt and Plan Problems Medical Problems: (1) Confusion Status: Acute (2) Hypovolemia Status: Acute (3) Lactic acidosis Status: Acute (4) Weakness Status: Acute Problems: Comment Review of Relevant I have reviewed the following items david (where applicable) has been applied. Labs Laboratory Tests Test 07/03/16 18:25 07/03/16 21:10 07/03/16 21:15 07/04/16 04:34 White Blood Count 7.2x10^3/uL (4.0-11.0) Red Blood Count 4.20x10^6/uL (4.30-5.70) Hemoglobin 13.6g/dL (13.0-17.5) Hematocrit 39.6% (39.0-53.0) Mean Corpuscular Volume 94fL (79-100) Mean Corpuscular Hemoglobin 32pg (25-35) Mean Corpuscular Hemoglobin Concent 34g/dL (31-37) Red Cell Distribution Width 13.3% (11.5-14.5) Platelet Count 227x10^3/uL (140-400) Neutrophils (%) (Auto) 66% (31-73) Lymphocytes (%) (Auto) 23% (24-48) Monocytes (%) (Auto) 8% (0-9) Eosinophils (%) (Auto) 4% (0-3) Basophils (%) (Auto) 0% (0-3) Neutrophils # (Auto) 4.7x10^3uL (1.8-7.7) Lymphocytes # (Auto) 1.6x10^3/uL (1.0-4.8) Monocytes # (Auto) 0.6x10^3/uL (0.0-1.1) Eosinophils # (Auto) 0.3x10^3/uL (0.0-0.7) Basophils # (Auto) 0.0x10^3/uL (0.0-0.2) Sodium Level 142mmol/L (136-145) 143mmol/L (136-145) Potassium Level 4.1mmol/L (3.5-5.1) 4.1mmol/L (3.5-5.1) Chloride Level 105mmol/L (98-107) 107mmol/L (98-107) Carbon Dioxide Level 25mmol/L (21-32) 26mmol/L (21-32) Anion Gap 12 (6-14) 10 (6-14) Blood Urea Nitrogen 18mg/dL (8-26) 17mg/dL (8-26) Creatinine 1.4mg/dL (0.7-1.3) 1.4mg/dL (0.7-1.3) Estimated GFR (Cockcroft-Gault) 52.8 52.8 Glucose Level 178mg/dL (70-99) 156mg/dL (70-99) Serum Osmolality 295mOsm/Kg (279-304) Lactic Acid Level 2.2mmol/L (0.4-2.0) Calcium Level 9.5mg/dL (8.5-10.1) 8.7mg/dL (8.5-10.1) Total Bilirubin 0.5mg/dL (0.2-1.0) Direct Bilirubin 0.1mg/dL (0.0-0.2) Aspartate Amino Transf (AST/SGOT) 21U/L (15-37) Alanine Aminotransferase (ALT/SGPT) 29U/L (16-63) Alkaline Phosphatase 177U/L (46-116) Troponin I Quantitative < 0.017ng/mL (0.000-0.055) GN-Rat-H-Type Natriuretic Peptide 100pg/mL (0-124) Total Protein 7.5g/dL (6.4-8.2) Albumin 3.6g/dL (3.4-5.0) Lipase 93U/L (73-393) Ethyl Alcohol Level < 10mg/dL (0-10) Urine Collection Type Unknown Urine Color Yellow Urine Clarity Clear Urine pH 5.5 Urine Specific [place] 1.020 Urine Protein Negativemg/dL (NEG-TRACE) Urine Glucose (UA) Negativemg/dL (NEG) Urine Ketones (Stick) Negativemg/dL (NEG) Urine Blood Large (NEG) Urine Nitrite Negative (NEG) Urine Bilirubin Negative (NEG) Urine Urobilinogen Dipstick 0.2mg/dL (0.2 mg/dL) Urine Leukocyte Esterase Negative (NEG) Urine RBC 20-40/HPF (0-2) Urine WBC 1-4/HPF (0-4) Urine Squamous Epithelial Cells Few/LPF Urine Bacteria Few/HPF (0-FEW) Urine Hyaline Casts Many/HPF Urine Mucus Mod/LPF Urine Opiates Screen Neg (NEG) Urine Methadone Screen Neg (NEG) Urine Barbiturates Neg (NEG) Urine Phencyclidine Screen Neg (NEG) Urine Amphetamine/Methamphetamine Neg (NEG) Urine Benzodiazepines Screen Pos (NEG) Urine Cocaine Screen Neg (NEG) Urine Cannabinoids Screen Pos (NEG) Urine Ethyl Alcohol Neg (NEG) Glucose (Fingerstick) 104mg/dL (70-99) Test 07/04/16 04:39 07/04/16 07:42 07/04/16 11:47 White Blood Count 6.2x10^3/uL (4.0-11.0) Red Blood Count 3.92x10^6/uL (4.30-5.70) Hemoglobin 12.6g/dL (13.0-17.5) Hematocrit 37.1% (39.0-53.0) Mean Corpuscular Volume 95fL (79-100) Mean Corpuscular Hemoglobin 32pg (25-35) Mean Corpuscular Hemoglobin Concent 34g/dL (31-37) Red Cell Distribution Width 13.7% (11.5-14.5) Platelet Count 207x10^3/uL (140-400) Neutrophils (%) (Auto) 58% (31-73) Lymphocytes (%) (Auto) 28% (24-48) Monocytes (%) (Auto) 8% (0-9) Eosinophils (%) (Auto) 5% (0-3) Basophils (%) (Auto) 2% (0-3) Neutrophils # (Auto) 3.6x10^3uL (1.8-7.7) Lymphocytes # (Auto) 1.8x10^3/uL (1.0-4.8) Monocytes # (Auto) 0.5x10^3/uL (0.0-1.1) Eosinophils # (Auto) 0.3x10^3/uL (0.0-0.7) Basophils # (Auto) 0.1x10^3/uL (0.0-0.2) Glucose (Fingerstick) 168mg/dL (70-99) 187mg/dL (70-99) Laboratory Tests Test 07/03/16 18:25 07/03/16 21:10 07/03/16 21:15 07/04/16 04:34 White Blood Count 7.2x10^3/uL (4.0-11.0) Red Blood Count 4.20x10^6/uL (4.30-5.70) Hemoglobin 13.6g/dL (13.0-17.5) Hematocrit 39.6% (39.0-53.0) Mean Corpuscular Volume 94fL (79-100) Mean Corpuscular Hemoglobin 32pg (25-35) Mean Corpuscular Hemoglobin Concent 34g/dL (31-37) Red Cell Distribution Width 13.3% (11.5-14.5) Platelet Count 227x10^3/uL (140-400) Neutrophils (%) (Auto) 66% (31-73) Lymphocytes (%) (Auto) 23% (24-48) Monocytes (%) (Auto) 8% (0-9) Eosinophils (%) (Auto) 4% (0-3) Basophils (%) (Auto) 0% (0-3) Neutrophils # (Auto) 4.7x10^3uL (1.8-7.7) Lymphocytes # (Auto) 1.6x10^3/uL (1.0-4.8) Monocytes # (Auto) 0.6x10^3/uL (0.0-1.1) Eosinophils # (Auto) 0.3x10^3/uL (0.0-0.7) Basophils # (Auto) 0.0x10^3/uL (0.0-0.2) Sodium Level 142mmol/L (136-145) 143mmol/L (136-145) Potassium Level 4.1mmol/L (3.5-5.1) 4.1mmol/L (3.5-5.1) Chloride Level 105mmol/L (98-107) 107mmol/L (98-107) Carbon Dioxide Level 25mmol/L (21-32) 26mmol/L (21-32) Anion Gap 12 (6-14) 10 (6-14) Blood Urea Nitrogen 18mg/dL (8-26) 17mg/dL (8-26) Creatinine 1.4mg/dL (0.7-1.3) 1.4mg/dL (0.7-1.3) Estimated GFR (Cockcroft-Gault) 52.8 52.8 Glucose Level 178mg/dL (70-99) 156mg/dL (70-99) Serum Osmolality 295mOsm/Kg (279-304) Lactic Acid Level 2.2mmol/L (0.4-2.0) Calcium Level 9.5mg/dL (8.5-10.1) 8.7mg/dL (8.5-10.1) Total Bilirubin 0.5mg/dL (0.2-1.0) Direct Bilirubin 0.1mg/dL (0.0-0.2) Aspartate Amino Transf (AST/SGOT) 21U/L (15-37) Alanine Aminotransferase (ALT/SGPT) 29U/L (16-63) Alkaline Phosphatase 177U/L (46-116) Troponin I Quantitative < 0.017ng/mL (0.000-0.055) VT-Ene-U-Type Natriuretic Peptide 100pg/mL (0-124) Total Protein 7.5g/dL (6.4-8.2) Albumin 3.6g/dL (3.4-5.0) Lipase 93U/L (73-393) Ethyl Alcohol Level < 10mg/dL (0-10) Urine Collection Type Unknown Urine Color Yellow Urine Clarity Clear Urine pH 5.5 Urine Specific [place] 1.020 Urine Protein Negativemg/dL (NEG-TRACE) Urine Glucose (UA) Negativemg/dL (NEG) Urine Ketones (Stick) Negativemg/dL (NEG) Urine Blood Large (NEG) Urine Nitrite Negative (NEG) Urine Bilirubin Negative (NEG) Urine Urobilinogen Dipstick 0.2mg/dL (0.2 mg/dL) Urine Leukocyte Esterase Negative (NEG) Urine RBC 20-40/HPF (0-2) Urine WBC 1-4/HPF (0-4) Urine Squamous Epithelial Cells Few/LPF Urine Bacteria Few/HPF (0-FEW) Urine Hyaline Casts Many/HPF Urine Mucus Mod/LPF Urine Opiates Screen Neg (NEG) Urine Methadone Screen Neg (NEG) Urine Barbiturates Neg (NEG) Urine Phencyclidine Screen Neg (NEG) Urine Amphetamine/Methamphetamine Neg (NEG) Urine Benzodiazepines Screen Pos (NEG) Urine Cocaine Screen Neg (NEG) Urine Cannabinoids Screen Pos (NEG) Urine Ethyl Alcohol Neg (NEG) Glucose (Fingerstick) 104mg/dL (70-99) Test 07/04/16 04:39 07/04/16 07:42 07/04/16 11:47 White Blood Count 6.2x10^3/uL (4.0-11.0) Red Blood Count 3.92x10^6/uL (4.30-5.70) Hemoglobin 12.6g/dL (13.0-17.5) Hematocrit 37.1% (39.0-53.0) Mean Corpuscular Volume 95fL (79-100) Mean Corpuscular Hemoglobin 32pg (25-35) Mean Corpuscular Hemoglobin Concent 34g/dL (31-37) Red Cell Distribution Width 13.7% (11.5-14.5) Platelet Count 207x10^3/uL (140-400) Neutrophils (%) (Auto) 58% (31-73) Lymphocytes (%) (Auto) 28% (24-48) Monocytes (%) (Auto) 8% (0-9) Eosinophils (%) (Auto) 5% (0-3) Basophils (%) (Auto) 2% (0-3) Neutrophils # (Auto) 3.6x10^3uL (1.8-7.7) Lymphocytes # (Auto) 1.8x10^3/uL (1.0-4.8) Monocytes # (Auto) 0.5x10^3/uL (0.0-1.1) Eosinophils # (Auto) 0.3x10^3/uL (0.0-0.7) Basophils # (Auto) 0.1x10^3/uL (0.0-0.2) Glucose (Fingerstick) 168mg/dL (70-99) 187mg/dL (70-99) Medications Current Medications Sodium Chloride (Iv Sodium Chloride 0.9% 1000ml Bag) 1,000 ml @ 1,000 mls/hr 1X ONCE IV Last administered on 07/03/16 18:40; Start 07/03/16 at 18:30; Stop 07/03/16 at 19:29; Status DC Ondansetron HCl (Zofran) 4 mg PRN Q8HRS PRN IV NAUSEA/VOMITING; Start 07/03/16 at 18:45; Stop 07/03/16 at 19:09; Status DC Morphine Sulfate 2 mg PRN Q2HR PRN IV PAIN; Start 07/03/16 at 18:45; Stop at 18:44 Acetaminophen (Tylenol) 650 mg PRN Q6HRS PRN PO FEVER Last administered on 10:52; Start 07/03/16 at 19:15 Ondansetron HCl (Zofran) 4 mg PRN Q6HRS PRN IV NAUSEA/VOMITING; Start 07/03/16 at 19:15 Insulin Aspart (Novolog) 0-9 UNITS QIDACHS SQ ; Start 07/03/16 at 21:00 Dextrose (Dextrose 50%-Water Syringe) 12.5 gm PRN Q15MIN PRN IV SEE COMMENTS; Start 07/03/16 at 19:15 Hydralazine HCl (Apresoline) 10 mg PRN Q4HRS PRN IVP ELEVATED BP, SEE COMMENTS ; Start 07/03/16 at 19:15 Gadobutrol (Gadavist) 9 mmol 1X ONCE IV Last administered on 07/03/16 20:11; Start 07/03/16 at 20:30; Stop 07/03/16 at 20:31; Status DC Atorvastatin Calcium (Lipitor) 40 mg HS PO ; Start 07/04/16 at 21:00 Acetaminophen/ Hydrocodone Bitart (Lortab 5/325) 1 tab PRN Q6HRS PRN PO PAIN; Start 07/04/16 at 11:45 Lisinopril (Prinivil) 10 mg DAILY PO Last administered on 07/04/16 12:37; Start 07/04/16 at 13:00 Naproxen (Naprosyn) 250 mg PRN BID PRN PO PAIN; Start 07/04/16 at 11:45 Sennosides (Senna) 8.6 mg PRN BID PRN PO CONSTIPATION; Start 07/04/16 at 11:45 Tamsulosin HCl (Flomax) 0.4 mg DAILY PO Last administered on 07/04/16 12:37; Start 07/04/16 at 13:00 Pantoprazole Sodium (Protonix) 40 mg DAILYAC PO Last administered on 07/04/16 12:38; Start 07/04/16 at 13:00 Potassium Chloride (Klor-Con) 20 meq DAILYWBKFT PO Last administered on 12:38; Start 07/04/16 at 13:00 Sertraline HCl (Zoloft) 100 mg DAILY PO ; Start 07/04/16 at 13:00 Linagliptin (Tradjenta) 5 mg DAILY PO Last administered on 07/04/16 12:37; Start 07/04/16 at 13:00 Insulin Detemir (Levemir) 10 units QHS SQ ; Start 07/04/16 at 21:00 Active Scripts Active Lortab 5-325 mg Tablet (Hydrocodone/Acetaminophen) 1 Each Tablet 1 Tab PO PRN Q6HRS PRN Flomax (Tamsulosin Hcl) 0.4 Mg Cap.er.24h 0.4 Mg PO DAILY Zofran (Ondansetron Hcl) 4 Mg Tablet 1 Tab PO Q8HRS PRN Percocet 7.5-325 Mg Tablet (Oxycodone/Acetaminophen) 1 Each Tablet 1 Tab PO PRN Q6HRS PRN Naproxen 250 Mg Tablet 250 Mg PO PRN BID PRN Reported Potassium Chloride 10 Meq Tablet.er 20 Meq PO DAILY Omeprazole 40 Mg Capsule.dr 1 Cap PO DAILY Hyoscyamine Sulfate 0.125 Mg Tab.subl 1 SL PRN Q4HRS PRN Bupropion Xl (Bupropion Hcl) 150 Mg Tab.er.24h 1 Tab PO DAILYWBKFT Rosuvastatin Calcium 20 Mg Tablet 1 PO QHS Trazodone Hcl 50 Mg Tablet Gabapentin 100 Mg Capsule 1 PO QHS Metformin Hcl Er (Metformin Hcl) 1,000 Mg Tab.er.24 Meclizine Hcl 25 Mg Tablet Lisinopril 10 Mg Tablet 1 PO DAILY Senna (Sennosides) 8.6 Mg Tablet Diazepam 5 Mg Tablet 1 PO PRN BID PRN Toumaria eugenia Solostar (Insulin Glargine,Hum.rec.anlog) 300 Unit/1 Ml Insuln.pen 20 Unit SQ DAILY Sertraline Hcl 100 Mg Tablet 100 Mg PO DAILY Januvia (Sitagliptin Phosphate) 100 Mg Tablet 100 Mg PO DAILY Atorvastatin Calcium 40 Mg Tablet 40 Mg PO HS Cyclobenzaprine Hcl 10 Mg Tablet 10 Mg PO TID Vitals/I & O Vital Sign - Last 24 Hours 07/03/16 07/03/16 07/03/16 07/04/16 17:45 21:00 23:00 02:35 Temp 97.7 97.6 97.6 97.7 97.6 97.6 Pulse 107 61 61 Resp 20 21 21 B/P 105/74 118/73 118/73 Pulse Ox 97 100 100 O2 Delivery Room Air Room Air Room Air Room Air 07/04/16 07/04/16 07/04/16 07/04/16 03:00 07:39 08:06 10:37 Temp 98.1 98.1 97.5 98.1 98.1 97.5 Pulse 76 93 93 Resp 20 20 20 B/P 131/84 101/65 134/86 Pulse Ox 98 96 98 O2 Delivery Room Air Room Air Room Air Room Air 07/04/16 12:37 Pulse 93 B/P 134/86 Intake and Output 07/03/16 07/03/16 07/04/16 15:00 23:00 07:00 Intake Total 1000 ml 300 ml Output Total 300 ml Balance 1000 ml 0 ml GERRY SINHA MD Jul 04, 2016 13:03
--- NOTE | 2016-07-04 14:03 | PDOC3 ---
Discharge Summary [facility] Date of Admission: Jul 03, 2016 Discharge Date: Jul 04, 2016 Admitting Diagnosis 1. AMS, slurry speech, confusion , 2/2 interaction of polypharm 2. drug abuse with marijuana 3. HTN 4. dm2 5. anxiety 5. gerd 7. HLD 8. right side weakness 1 month, subjective 9. JACEY, vasomotor Problems: Final Diagnosis Problems CONSULTS neuro Brief Hospital Course 46-year-old male with a history of type 2 diabetes hypertension and high cholesterol presenting to the emergency department today with generalized weakness and slurred speech today. Pt is a poor historian. He said he has been taking zoloft for a long time, recently started taking diazempam and burspirone this week, since then , feels weak, less energy, sleep more, low po intake. TOday, He was found slurry speech and more confused. He also c/o right side weakness for 1 month. denies fever,vomiting, but + chills and nausea. also use [employer]. MRI brain neg for stroke. Pt is drowsy, sleepy, arousable and answer questions ok. it is likely 2/2 multiple meds including gabapentin, trazodone, dizapem, zoloft, wellbutrin, and marijuana. Cr higher than baseline, on NSAIDS and dehydration. ideally get ivf and dc tmr. but pt refused IVF and wants to go home today. Neuro is ok for dc. dc time 35min Patient History: Patient reports no known family medical history. Problems: Disposition home CONDITION AT DISCHARGE: Stable Diet regular Scheduled Atorvastatin Calcium (Atorvastatin Calcium) 40 MG PO HS (Reported) Gabapentin (Gabapentin) 1 PO QHS (Reported) Insulin Glargine,Hum.rec.anlog (Lam Drew) 20 UNIT SQ DAILY (Reported) Lisinopril (Lisinopril) 1 PO DAILY (Reported) Omeprazole (Omeprazole) 1 CAP PO DAILY (Reported) Potassium Chloride (Potassium Chloride) 20 MEQ PO DAILY (Reported) Rosuvastatin Calcium (Rosuvastatin Calcium) 1 PO QHS (Reported) Sertraline Hcl (Sertraline Hcl) 100 MG PO DAILY (Reported) Sitagliptin Phosphate (Januvia) 100 MG PO DAILY (Reported) Tamsulosin Hcl (Flomax) 0.4 MG PO DAILY Scheduled PRN Hydrocodone/Acetaminophen (Lortab 5-325 mg Tablet) 1 TAB PO PRN Q6HRS PRN PRN PAIN Hyoscyamine Sulfate (Hyoscyamine Sulfate) 1 SL PRN Q4HRS PRN PRN MUSCLE SPASMS ( Reported) Ondansetron Hcl (Zofran) 1 TAB PO Q8HRS PRN PRN NAUSEA/VOMITING Oxycodone/Apap 7.5-325 (Percocet 7.5-325 Mg Tablet) 1 TAB PO PRN Q6HRS PRN PRN PAIN Miscellaneous Medications Meclizine Hcl (Meclizine Hcl) (Reported) Metformin Hcl (Metformin Hcl Er) (Reported) Sennosides (Senna) (Reported) Discontinued Medications Bupropion Hcl (Bupropion Xl) (Reported) Bupropion Hcl (Bupropion Xl) 1 TAB PO DAILYWBKFT (Reported) Cyclobenzaprine Hcl (Cyclobenzaprine Hcl) 10 MG PO TID (Reported) Diazepam (Diazepam) 1 PO PRN BID PRN PRN ANXIETY / AGITATION (Reported) Naproxen (Naproxen) 250 MG PO PRN BID PRN PRN PAIN Omeprazole (Omeprazole) 1 TAB PO DAILY (Reported) Trazodone Hcl (Trazodone Hcl) (Reported) Follow Up pcp and neuro in 2 weeks GERRY SINHA MD Jul 04, 2016 14:03
--- NOTE | 2016-07-04 16:31 | PDOC2 ---
NEUROLOGY CONSULT Date of Admission Date of Admission DATE: 07/04/16 TIME: 16:25 Reason for Consult Reason for Consult: Dysarthria, dizziness Referring Physician Referring Physician: Dr. Pate Identification/Chief Complaint Chief Complaint Dr. Gavin Problems: Source Source: Caregiver, Chart review, Patient History of Present Illness History of Present Illness The patient is a 56-year-old right-handed male admitted with 3 or 4 days of increasing confusion, dysarthria, and dizziness. He recently was started on buspirone and Valium. He does have chronic dizziness and has seen ENT, without abnormalities found. There is a plan to send him to audiology, but he says that his insurance will not pay for that. The patient describes dizziness but not true vertigo. There is no diplopia or dysphagia. He believes he is doing better today. Again, symptoms started at the onset of the buspirone and Valium, and the patient recently stopped taking Wellbutrin because of suicidal thoughts. Dr. Gavin, his primary physician, is managing the psychiatric problems. 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 Current Medications Current Medications Current Medications Sodium Chloride (Iv Sodium Chloride 0.9% 1000ml Bag) 1,000 ml @ 1,000 mls/hr 1X ONCE IV Last administered on 07/03/16t 18:40; Start 07/03/16 at 18:30; Stop 07/03/16 at 19:29; Status DC Ondansetron HCl (Zofran) 4 mg PRN Q8HRS PRN IV NAUSEA/VOMITING; Start 07/03/16 at 18:45; Stop 07/03/16 at 19:09; Status DC Morphine Sulfate 2 mg PRN Q2HR PRN IV PAIN; Start 07/03/16 at 18:45; Stop at 14:30; Status DC Acetaminophen (Tylenol) 650 mg PRN Q6HRS PRN PO FEVER Last administered on 10:52; Start 07/03/16 at 19:15; Stop 07/04/16 at 14:30; Status DC Ondansetron HCl (Zofran) 4 mg PRN Q6HRS PRN IV NAUSEA/VOMITING; Start 07/03/16 at 19:15; Stop 07/04/16 at 14:30; Status DC Insulin Aspart (Novolog) 0-9 UNITS QIDACHS SQ ; Start 07/03/16 at 21:00; Stop 07/04/16 at 14:30; Status DC Dextrose (Dextrose 50%-Water Syringe) 12.5 gm PRN Q15MIN PRN IV SEE COMMENTS; Start 07/03/16 at 19:15; Stop 07/04/16 at 14:30; Status DC Hydralazine HCl (Apresoline) 10 mg PRN Q4HRS PRN IVP ELEVATED BP, SEE COMMENTS ; Start 07/03/16 at 19:15; Stop 07/04/16 at 14:30; Status DC Gadobutrol (Gadavist) 9 mmol 1X ONCE IV Last administered on 07/03/16 20:11; Start 07/03/16 at 20:30; Stop 07/03/16 at 20:31; Status DC Atorvastatin Calcium (Lipitor) 40 mg HS PO ; Start 07/04/16 at 21:00; Stop at 21:00; Status DC Acetaminophen/ Hydrocodone Bitart (Lortab 5/325) 1 tab PRN Q6HRS PRN PO PAIN; Start 07/04/16 at 11:45; Stop 07/04/16 at 14:30; Status DC Lisinopril (Prinivil) 10 mg DAILY PO Last administered on 07/04/16 12:37; Start 07/04/16 at 13:00; Stop 07/04/16 at 14:30; Status DC Naproxen (Naprosyn) 250 mg PRN BID PRN PO PAIN; Start 07/04/16 at 11:45; Stop at 13:01; Status DC Sennosides (Senna) 8.6 mg PRN BID PRN PO CONSTIPATION; Start 07/04/16 at 11:45; Stop 07/04/16 at 14:30; Status DC Tamsulosin HCl (Flomax) 0.4 mg DAILY PO Last administered on 07/04/16 12:37; Start 07/04/16 at 13:00; Stop 07/04/16 at 14:30; Status DC Pantoprazole Sodium (Protonix) 40 mg DAILYAC PO Last administered on 07/04/16 12:38; Start 07/04/16 at 13:00; Stop 07/04/16 at 14:30; Status DC Potassium Chloride (Klor-Con) 20 meq DAILYWBKFT PO Last administered on 12:38; Start 07/04/16 at 13:00; Stop 07/04/16 at 14:30; Status DC Sertraline HCl (Zoloft) 100 mg DAILY PO ; Start 07/04/16 at 13:00; Stop 07/04/16 at 14:30; Status DC Linagliptin (Tradjenta) 5 mg DAILY PO Last administered on 07/04/16 12:37; Start 07/04/16 at 13:00; Stop 07/04/16 at 14:30; Status DC Insulin Detemir 10 units 10 units QHS SQ ; Start 07/04/16 at 21:00; Stop 07/04/16 at 21:00; Status DC Sodium Chloride (Iv Sodium Chloride 0.9% 1000ml Bag) 1,000 ml @ 100 mls/hr 1X ONCE IV ; Start 07/04/16 at 13:00; Stop 07/04/16 at 14:30; Status DC Active Scripts Active Lortab 5-325 mg Tablet (Hydrocodone/Acetaminophen) 1 Each Tablet 1 Tab PO PRN Q6HRS PRN Flomax (Tamsulosin Hcl) 0.4 Mg Cap.er.24h 0.4 Mg PO DAILY Zofran (Ondansetron Hcl) 4 Mg Tablet 1 Tab PO Q8HRS PRN Percocet 7.5-325 Mg Tablet (Oxycodone/Acetaminophen) 1 Each Tablet 1 Tab PO PRN Q6HRS PRN Reported Potassium Chloride 10 Meq Tablet.er 20 Meq PO DAILY Omeprazole 40 Mg Capsule.dr 1 Cap PO DAILY Hyoscyamine Sulfate 0.125 Mg Tab.subl 1 SL PRN Q4HRS PRN Rosuvastatin Calcium 20 Mg Tablet 1 PO QHS Gabapentin 100 Mg Capsule 1 PO QHS Metformin Hcl Er (Metformin Hcl) 1,000 Mg Tab.er.24 Meclizine Hcl 25 Mg Tablet Lisinopril 10 Mg Tablet 1 PO DAILY Senna (Sennosides) 8.6 Mg Tablet Toujeo Solostar (Insulin Glargine,Hum.rec.anlog) 300 Unit/1 Ml Insuln.pen 20 Unit SQ DAILY Sertraline Hcl 100 Mg Tablet 100 Mg PO DAILY Januvia (Sitagliptin Phosphate) 100 Mg Tablet 100 Mg PO DAILY Atorvastatin Calcium 40 Mg Tablet 40 Mg PO HS Allergies Allergies: Coded Allergies: Sulfa (Sulfonamide Antibiotics) (Verified Allergy, Severe, ADLER HIMA SYNDROME, 01/21/16) ROS Review of System Patient denies fevers, chills, weight loss, dyspnea, angina, abdominal pain, change in bowels, or dysuria. 14 point review of systems is negative. Physical Exam Physical Examination PHYSICAL EXAMINATION: Vital signs: see above. General appearance is normal and in no acute distress. HEENT: Normocephalic and nontraumatic. Eyes, nose, ears, and throat are unremarkable. Neck is supple. No lymphadenopathy. No bruits are heard over the carotid artery. No crepitus. NEUROLOGICAL EXAMINATION: Mental Status Examination: Alert. Oriented to time, place, and person. Answers questions and follows commends. Pupils are equal round and reactive to light and accommodation. Funduscopic exam: No papilledema. Extraocular movements are intact. Visual field exam shows no defect on the direct confrontation. No motor or sensory deficits on the facial exam. Uvula in the midline and the soft palate elevated symmetrically. No deviation of the tongue to any direction. Gross hearing is normal. No nystagmus elicited. Vestibular ocular reflex is normal Shoulder shrug normal. Muscle tone is normal. Muscle strength is 5. Deep tendon reflexes are 2+ all around. Plantar reflex is with flexion response bilaterally. Bawyit-gw-gyam test performance is accurate. Tandem walk test is accurate. Alternative movements are accurate. Romberg test is negative. Gait is normal. Sensory exam shows no deficits. No cerebellar signs are elicited. Vitals VITALS Vital Signs Date Time Temp Pulse Resp B/P Pulse Ox O2 Delivery O2 Flow Rate FiO2 07/04/16 12:37 93 134/86 07/04/16 10:37 97.5 20 98 Room Air 97.5 Labs Labs Laboratory Tests Test 07/03/16 18:25 07/03/16 21:10 07/03/16 21:15 07/04/16 04:34 White Blood Count 7.2x10^3/uL (4.0-11.0) Red Blood Count 4.20x10^6/uL (4.30-5.70) Hemoglobin 13.6g/dL (13.0-17.5) Hematocrit 39.6% (39.0-53.0) Mean Corpuscular Volume 94fL (79-100) Mean Corpuscular Hemoglobin 32pg (25-35) Mean Corpuscular Hemoglobin Concent 34g/dL (31-37) Red Cell Distribution Width 13.3% (11.5-14.5) Platelet Count 227x10^3/uL (140-400) Neutrophils (%) (Auto) 66% (31-73) Lymphocytes (%) (Auto) 23% (24-48) Monocytes (%) (Auto) 8% (0-9) Eosinophils (%) (Auto) 4% (0-3) Basophils (%) (Auto) 0% (0-3) Neutrophils # (Auto) 4.7x10^3uL (1.8-7.7) Lymphocytes # (Auto) 1.6x10^3/uL (1.0-4.8) Monocytes # (Auto) 0.6x10^3/uL (0.0-1.1) Eosinophils # (Auto) 0.3x10^3/uL (0.0-0.7) Basophils # (Auto) 0.0x10^3/uL (0.0-0.2) Sodium Level 142mmol/L (136-145) 143mmol/L (136-145) Potassium Level 4.1mmol/L (3.5-5.1) 4.1mmol/L (3.5-5.1) Chloride Level 105mmol/L (98-107) 107mmol/L (98-107) Carbon Dioxide Level 25mmol/L (21-32) 26mmol/L (21-32) Anion Gap 12 (6-14) 10 (6-14) Blood Urea Nitrogen 18mg/dL (8-26) 17mg/dL (8-26) Creatinine 1.4mg/dL (0.7-1.3) 1.4mg/dL (0.7-1.3) Estimated GFR (Cockcroft-Gault) 52.8 52.8 Glucose Level 178mg/dL (70-99) 156mg/dL (70-99) Serum Osmolality 295mOsm/Kg (279-304) Lactic Acid Level 2.2mmol/L (0.4-2.0) Calcium Level 9.5mg/dL (8.5-10.1) 8.7mg/dL (8.5-10.1) Total Bilirubin 0.5mg/dL (0.2-1.0) Direct Bilirubin 0.1mg/dL (0.0-0.2) Aspartate Amino Transf (AST/SGOT) 21U/L (15-37) Alanine Aminotransferase (ALT/SGPT) 29U/L (16-63) Alkaline Phosphatase 177U/L (46-116) Troponin I Quantitative < 0.017ng/mL (0.000-0.055) QQ-Nqw-E-Type Natriuretic Peptide 100pg/mL (0-124) Total Protein 7.5g/dL (6.4-8.2) Albumin 3.6g/dL (3.4-5.0) Lipase 93U/L (73-393) Ethyl Alcohol Level < 10mg/dL (0-10) Urine Collection Type Unknown Urine Color Yellow Urine Clarity Clear Urine pH 5.5 Urine Specific [place] 1.020 Urine Protein Negativemg/dL (NEG-TRACE) Urine Glucose (UA) Negativemg/dL (NEG) Urine Ketones (Stick) Negativemg/dL (NEG) Urine Blood Large (NEG) Urine Nitrite Negative (NEG) Urine Bilirubin Negative (NEG) Urine Urobilinogen Dipstick 0.2mg/dL (0.2 mg/dL) Urine Leukocyte Esterase Negative (NEG) Urine RBC 20-40/HPF (0-2) Urine WBC 1-4/HPF (0-4) Urine Squamous Epithelial Cells Few/LPF Urine Bacteria Few/HPF (0-FEW) Urine Hyaline Casts Many/HPF Urine Mucus Mod/LPF Urine Opiates Screen Neg (NEG) Urine Methadone Screen Neg (NEG) Urine Barbiturates Neg (NEG) Urine Phencyclidine Screen Neg (NEG) Urine Amphetamine/Methamphetamine Neg (NEG) Urine Benzodiazepines Screen Pos (NEG) Urine Cocaine Screen Neg (NEG) Urine Cannabinoids Screen Pos (NEG) Urine Ethyl Alcohol Neg (NEG) Glucose (Fingerstick) 104mg/dL (70-99) Test 07/04/16 04:39 07/04/16 07:42 07/04/16 11:47 White Blood Count 6.2x10^3/uL (4.0-11.0) Red Blood Count 3.92x10^6/uL (4.30-5.70) Hemoglobin 12.6g/dL (13.0-17.5) Hematocrit 37.1% (39.0-53.0) Mean Corpuscular Volume 95fL (79-100) Mean Corpuscular Hemoglobin 32pg (25-35) Mean Corpuscular Hemoglobin Concent 34g/dL (31-37) Red Cell Distribution Width 13.7% (11.5-14.5) Platelet Count 207x10^3/uL (140-400) Neutrophils (%) (Auto) 58% (31-73) Lymphocytes (%) (Auto) 28% (24-48) Monocytes (%) (Auto) 8% (0-9) Eosinophils (%) (Auto) 5% (0-3) Basophils (%) (Auto) 2% (0-3) Neutrophils # (Auto) 3.6x10^3uL (1.8-7.7) Lymphocytes # (Auto) 1.8x10^3/uL (1.0-4.8) Monocytes # (Auto) 0.5x10^3/uL (0.0-1.1) Eosinophils # (Auto) 0.3x10^3/uL (0.0-0.7) Basophils # (Auto) 0.1x10^3/uL (0.0-0.2) Glucose (Fingerstick) 168mg/dL (70-99) 187mg/dL (70-99) Laboratory Tests Test 07/03/16 18:25 07/03/16 21:10 07/03/16 21:15 07/04/16 04:34 White Blood Count 7.2x10^3/uL (4.0-11.0) Red Blood Count 4.20x10^6/uL (4.30-5.70) Hemoglobin 13.6g/dL (13.0-17.5) Hematocrit 39.6% (39.0-53.0) Mean Corpuscular Volume 94fL (79-100) Mean Corpuscular Hemoglobin 32pg (25-35) Mean Corpuscular Hemoglobin Concent 34g/dL (31-37) Red Cell Distribution Width 13.3% (11.5-14.5) Platelet Count 227x10^3/uL (140-400) Neutrophils (%) (Auto) 66% (31-73) Lymphocytes (%) (Auto) 23% (24-48) Monocytes (%) (Auto) 8% (0-9) Eosinophils (%) (Auto) 4% (0-3) Basophils (%) (Auto) 0% (0-3) Neutrophils # (Auto) 4.7x10^3uL (1.8-7.7) Lymphocytes # (Auto) 1.6x10^3/uL (1.0-4.8) Monocytes # (Auto) 0.6x10^3/uL (0.0-1.1) Eosinophils # (Auto) 0.3x10^3/uL (0.0-0.7) Basophils # (Auto) 0.0x10^3/uL (0.0-0.2) Sodium Level 142mmol/L (136-145) 143mmol/L (136-145) Potassium Level 4.1mmol/L (3.5-5.1) 4.1mmol/L (3.5-5.1) Chloride Level 105mmol/L (98-107) 107mmol/L (98-107) Carbon Dioxide Level 25mmol/L (21-32) 26mmol/L (21-32) Anion Gap 12 (6-14) 10 (6-14) Blood Urea Nitrogen 18mg/dL (8-26) 17mg/dL (8-26) Creatinine 1.4mg/dL (0.7-1.3) 1.4mg/dL (0.7-1.3) Estimated GFR (Cockcroft-Gault) 52.8 52.8 Glucose Level 178mg/dL (70-99) 156mg/dL (70-99) Serum Osmolality 295mOsm/Kg (279-304) Lactic Acid Level 2.2mmol/L (0.4-2.0) Calcium Level 9.5mg/dL (8.5-10.1) 8.7mg/dL (8.5-10.1) Total Bilirubin 0.5mg/dL (0.2-1.0) Direct Bilirubin 0.1mg/dL (0.0-0.2) Aspartate Amino Transf (AST/SGOT) 21U/L (15-37) Alanine Aminotransferase (ALT/SGPT) 29U/L (16-63) Alkaline Phosphatase 177U/L (46-116) Troponin I Quantitative < 0.017ng/mL (0.000-0.055) FZ-Ryv-E-Type Natriuretic Peptide 100pg/mL (0-124) Total Protein 7.5g/dL (6.4-8.2) Albumin 3.6g/dL (3.4-5.0) Lipase 93U/L (73-393) Ethyl Alcohol Level < 10mg/dL (0-10) Urine Collection Type Unknown Urine Color Yellow Urine Clarity Clear Urine pH 5.5 Urine Specific [place] 1.020 Urine Protein Negativemg/dL (NEG-TRACE) Urine Glucose (UA) Negativemg/dL (NEG) Urine Ketones (Stick) Negativemg/dL (NEG) Urine Blood Large (NEG) Urine Nitrite Negative (NEG) Urine Bilirubin Negative (NEG) Urine Urobilinogen Dipstick 0.2mg/dL (0.2 mg/dL) Urine Leukocyte Esterase Negative (NEG) Urine RBC 20-40/HPF (0-2) Urine WBC 1-4/HPF (0-4) Urine Squamous Epithelial Cells Few/LPF Urine Bacteria Few/HPF (0-FEW) Urine Hyaline Casts Many/HPF Urine Mucus Mod/LPF Urine Opiates Screen Neg (NEG) Urine Methadone Screen Neg (NEG) Urine Barbiturates Neg (NEG) Urine Phencyclidine Screen Neg (NEG) Urine Amphetamine/Methamphetamine Neg (NEG) Urine Benzodiazepines Screen Pos (NEG) Urine Cocaine Screen Neg (NEG) Urine Cannabinoids Screen Pos (NEG) Urine Ethyl Alcohol Neg (NEG) Glucose (Fingerstick) 104mg/dL (70-99) Test 07/04/16 04:39 07/04/16 07:42 07/04/16 11:47 White Blood Count 6.2x10^3/uL (4.0-11.0) Red Blood Count 3.92x10^6/uL (4.30-5.70) Hemoglobin 12.6g/dL (13.0-17.5) Hematocrit 37.1% (39.0-53.0) Mean Corpuscular Volume 95fL (79-100) Mean Corpuscular Hemoglobin 32pg (25-35) Mean Corpuscular Hemoglobin Concent 34g/dL (31-37) Red Cell Distribution Width 13.7% (11.5-14.5) Platelet Count 207x10^3/uL (140-400) Neutrophils (%) (Auto) 58% (31-73) Lymphocytes (%) (Auto) 28% (24-48) Monocytes (%) (Auto) 8% (0-9) Eosinophils (%) (Auto) 5% (0-3) Basophils (%) (Auto) 2% (0-3) Neutrophils # (Auto) 3.6x10^3uL (1.8-7.7) Lymphocytes # (Auto) 1.8x10^3/uL (1.0-4.8) Monocytes # (Auto) 0.5x10^3/uL (0.0-1.1) Eosinophils # (Auto) 0.3x10^3/uL (0.0-0.7) Basophils # (Auto) 0.1x10^3/uL (0.0-0.2) Glucose (Fingerstick) 168mg/dL (70-99) 187mg/dL (70-99) Images Images MRI brain: There are few small foci of FLAIR signal hyperintensity in the periventricular white matter but these are nonspecific and probably related to sequelae of mild chronic small vessel ischemic disease. No abnormal intracranial enhancement. No evidence of acute intracranial hemorrhage. No restricted diffusion to indicate acute infarct. No extra-axial fluid collections. No midline shift or mass effect. Ventricular size is appropriate. Midline structures have a normal anatomic configuration. Pituitary gland and infundibulum are unremarkable. Basal cisterns are patent. Arterial flow voids at the skull base and major dural venous sinuses are maintained. Globes and orbits are unremarkable. There is very mild mucosal thickening of the ethmoid air cells. IMPRESSION: No acute intracranial abnormality. No abnormal enhancement or mass. Assessment/Plan Assessment/Plan Impression: Toxic encephalopathy related to Valium, buspirone, also contribution from marijuana, possible Wellbutrin withdrawal effects. No evidence of stroke. Chronic dizziness, no bedside evidence of vestibular dysfunction either central or peripheral. Recommendations: Okay for discharge Follow-up with primary physician for reevaluation of psychiatric medications Follow-up with neurology as needed. Thank you for letting me help with the patient's care. COURTNEY HAN MD Jul 04, 2016 16:31
[2016-07-04] MEDS ORDERED: INSULIN DETEMIR 300 UNITS/3 ML INSULN.PEN. SQ SCH (21:00)
[2016-07-04] MEDS ORDERED: ATORVASTATIN CALCIUM 40 MG TABLET. PO SCH (21:00)
== END 2016-07-04 14:18 | disposition home or self-care (01) ==
LOC: ER 17:42 → 6 SOUTH 18:41
PROVIDERS: ADMIT Internal Medicine; ATTEND Internal Medicine
DX: R41.82 Altered mental status, unspecified (principal); R47.81 Slurred speech; F12.10 Cannabis abuse, uncomplicated; I10 Essential (primary) hypertension; E11.9 Type 2 diabetes mellitus without complications; F41.9 Anxiety disorder, unspecified; K21.9 Gastro-esophageal reflux disease without esophagitis; E78.5 Hyperlipidemia, unspecified; E78.00 Pure hypercholesterolemia, unspecified; E86.0 Dehydration; E86.1 Hypovolemia; E87.2 Acidosis; G47.30 Sleep apnea, unspecified; G92 Toxic encephalopathy; N17.9 Acute kidney failure, unspecified; Z87.442 Personal history of urinary calculi
CPT/HCPCS: 36415; 70450; 70553; 71010; 80048; 80076; 81001; 82947; 83605; 83690; 83880; 83930; 84484; 85027; 93005; 96360; A9585; G0378; G0480; G0481; J1815; J7030; G0379

== ENCOUNTER 2016-09-04 20:30 | Emergency (ER) | payer BC ==
[~2016-09-04] VITALS: Ht 177.8 cm; Wt 92.1 kg
[~2016-09-04 20:30] MED LIST changes: +BUPR150T6 PO; +BUPR300T4; +DIAZ5TAB4 PO; +GABA100C6 PO; +HYOS0.126 SL; +LISI10TA2 PO; +MECL25TA3; +METF-620 PO; +METF100010; -METF10002 PO; -OMEP20TA PO; +OMEP20TA8 PO; +OMEP40CA5 PO; -OXYC-244 PO; +OXYC-327 PO; +POTA10TA12 PO; +ROSUVASTATIN CA20 MG PO; +SENN-79; +TRAZ50TA15
[2016-09-04] MEDS ORDERED: HALO5TAB PO (21:04)
[2016-09-04 21:46] LABS: BASO # 0.1 x10^3/uL (0.0-0.2); BASO % 1 % (0-3); EOS % 5 % (0-3); HEMATOCRIT 42.3 % (39.0-53.0); HEMOGLOBIN 15.2 g/dL (13.0-17.5); LYMPH # 1.8 x10^3/uL (1.0-4.8); LYMPH % 30 % (24-48); MEAN CORPUSCULAR HEMOGLOBIN 34 pg (25-35); MEAN CORPUSCULAR HGB CONC 36 g/dL (31-37); MEAN CORPUSCULAR VOLUME 94 fL (79-100); MONO % 10 % (0-9); NEUT % 54 % (31-73); PLATELET COUNT 174 x10^3/uL (140-400); RED CELL DISTRIBUTION WIDTH 14.1 % (11.5-14.5)
[2016-09-04 21:55] LABS: CREATININE 1.1 mg/dL (0.7-1.3); GFR 69.8; POTASSIUM 4.1 mmol/L (3.5-5.1)
[2016-09-04] MEDS ORDERED: IV NORMAL SALINE 1000ML BAG 1,000 ML IV SCH (22:00)
--- NOTE | 2016-09-04 22:03 | PHYS DOC ---
Past Medical History Past Medical History: Anxiety, Diabetes-Type II, Fibromyalgia, GERD, High Cholesterol, Hypertension, Kidney Stone, Other Additional Past Medical Histor: CHRONIC BACK PAIN Past Surgical History: Cancer Surgery, Other Additional Past Surgical Histo: lithotripsy, back,CYSTOSCOPY W/ KIDENY STONE REMOVAL & STENT, BLADDER CA Alcohol Use: Rarely Additional Information: A COUPLE OF DRINKS LAST NIGHT Drug Use: Marijuana Adult General Chief Complaint Chief Complaint: WEAKNESS/GENERALIZED HPI HPI Patient is a 56 year old male who presents with for evaluation of generalized weakness and lightheadedness that has been over the past 1-2 weeks. He states he started haloperidol for "mood disorder" approximately 2 weeks ago. His symptoms are constant, but fluctuating in intensity throughout the day. Noticed these symptoms started a couple days after starting that medication. He denies vision changes, nausea or vomiting, fever or chills, chest pain, palpitations, diaphoresis, orthopnea, abdominal pain, diarrhea, dysuria, hematuria. Review of Systems Review of Systems Constitutional: Denies fever or chills [] Eyes: Denies change in visual acuity, redness, or eye pain [] HENT: Denies nasal congestion or sore throat [] Respiratory: Denies cough or shortness of breath [] Cardiovascular: No additional information not addressed in HPI [] GI: Denies abdominal pain, nausea, vomiting, bloody stools or diarrhea [] : Denies dysuria or hematuria [] Musculoskeletal: Denies back pain or joint pain [] Integument: Denies rash or skin lesions [] Neurologic: Denies headache, focal weakness or sensory changes [] Endocrine: Denies polyuria or polydipsia [] Current Medications Current Medications Current Medications Medications (Trade) Dose Ordered Sig/Nury Start Time Stop Time Status Last Admin Dose Admin Sodium Chloride 1,000 ml @ 1,000 mls/hr Q1H 09/04/16 22:00 09/04/16 22:35 DC 09/04/16 21:45 1,000 MLS/HR Allergies Allergies Allergies Coded Allergies Type Severity Reaction Last Updated Verified Sulfa (Sulfonamide Antibiotics) Allergy Severe ADLER HIMA SYNDROME Yes Physical Exam Physical Exam Constitutional: Well developed, well nourished, no acute distress, non-toxic appearance. [] HENT: Normocephalic, atraumatic, bilateral external ears normal, oropharynx moist, no oral exudates, nose normal. [] Eyes: PERRLA, EOMI. [] Neck: Normal range of motion, supple. [] Cardiovascular:Heart rate regular rhythm [] Lungs & Thorax: Bilateral breath sounds clear to auscultation [] Abdomen: Bowel sounds normal, soft, no tenderness. [] Skin: Warm, dry, no erythema, no rash. [] Back: Normal range of motion. [] Extremities: No tenderness, ROM intact, no edema. [] Neurologic: Alert and oriented X 3, normal motor function, normal sensory function, no focal deficits noted, cranial nerves II through XII intact, no nystagmus, no pronator drift, no past pointing. [] Psychologic: Affect normal, judgement normal, mood normal. [] Current Patient Data Vital Signs Vital Signs Date Time Temp Pulse Resp B/P (MAP) Pulse Ox O2 Delivery O2 Flow Rate FiO2 09/04/16 22:13 76 25 138/75 (96) 96 Room Air 09/04/16 20:45 97.6 97.6 Lab Values Laboratory Tests Test 09/04/16 21:15 White Blood Count 6.0 x10^3/uL (4.0-11.0) Red Blood Count 4.50 x10^6/uL (4.30-5.70) Hemoglobin 15.2 g/dL (13.0-17.5) Hematocrit 42.3 % (39.0-53.0) Mean Corpuscular Volume 94 fL (79-100) Mean Corpuscular Hemoglobin 34 pg (25-35) Mean Corpuscular Hemoglobin Concent 36 g/dL (31-37) Red Cell Distribution Width 14.1 % (11.5-14.5) Platelet Count 174 x10^3/uL (140-400) Neutrophils (%) (Auto) 54 % (31-73) Lymphocytes (%) (Auto) 30 % (24-48) Monocytes (%) (Auto) 10 % (0-9) H Eosinophils (%) (Auto) 5 % (0-3) H Basophils (%) (Auto) 1 % (0-3) Neutrophils # (Auto) 3.3 x10^3uL (1.8-7.7) Lymphocytes # (Auto) 1.8 x10^3/uL (1.0-4.8) Monocytes # (Auto) 0.6 x10^3/uL (0.0-1.1) Eosinophils # (Auto) 0.3 x10^3/uL (0.0-0.7) Basophils # (Auto) 0.1 x10^3/uL (0.0-0.2) Sodium Level 138 mmol/L (136-145) Potassium Level 4.1 mmol/L (3.5-5.1) Chloride Level 103 mmol/L (98-107) Carbon Dioxide Level 26 mmol/L (21-32) Anion Gap 9 (6-14) Blood Urea Nitrogen 17 mg/dL (8-26) Creatinine 1.1 mg/dL (0.7-1.3) Estimated GFR (Cockcroft-Gault) 69.8 Glucose Level 195 mg/dL (70-99) H Calcium Level 9.0 mg/dL (8.5-10.1) Laboratory Tests 09/04/16 21:15 Laboratory Tests 09/04/16 21:15 EKG EKG EKG as interpreted by me as normal sinus rhythm, rate 69, no ST-T changes, normal intervals, no ectopy Course & Med Decision Making Course & Med Decision Making Pertinent Labs and Imaging studies reviewed. (See chart for details) Workup is unremarkable. He is feeling better after medications and would like to go home. Discussed he likely needs to decrease his haloperidol dose and follow-up with his primary care doctor. Return precautions given. He understands and agrees with plan. Dragon Disclaimer Dragon Disclaimer This electronic medical record was generated, in whole or in part, using a voice recognition dictation system. Departure Departure Impression: Primary Impression: Generalized weakness Disposition: 01 HOME, SELF-CARE Condition: STABLE Referrals: MARLENI ANGELA (PCP) Patient Instructions: Weakness, [id number]-tc-[id number] Additional Instructions: Decrease your haloperidol dose by half. Follow-up with your primary care doctor. Return for any concerns. Su SCHAFFER MD Sep 04, 2016 22:03
[2016-09-04 22:13] VITALS: BP 138/75
--- NOTE | 2016-09-05 12:36 | EKG ---
[facility] [address] [place] [id number] Test Date: 2016-09-04 Test Time: 21:21:19 Pat Name: SARI BELTRE Department: Room: Gender: M [employer] Operator: KIANNA VEGA : 1960 Requested By: Su SCHAFFER Order Number: [id number] Reading MD: Qiana Chakraborty Measurements Intervals [place] Rate: 69 P: 47 IA: 174 QRS: 13 QRSD: 94 T: 29 QT: 352 QTc: 378 Interpretive Statements SINUS RHYTHM NO SPECIFIC ECG ABNORMALITIES RI6.01 Compared to ECG 07/03/2016 18:24:46 No significant changes Electronically Signed On 09-05-2016 21:23:49 CDT by Qiana Chakraborty
== END 2016-09-04 22:35 | disposition home or self-care (01) ==
LOC: ER 20:30
DX: R53.1 Weakness (principal); R42 Dizziness and giddiness; F41.9 Anxiety disorder, unspecified; E11.9 Type 2 diabetes mellitus without complications; M79.7 Fibromyalgia; K21.9 Gastro-esophageal reflux disease without esophagitis; E78.00 Pure hypercholesterolemia, unspecified; I10 Essential (primary) hypertension; G89.29 Other chronic pain; F12.10 Cannabis abuse, uncomplicated; Z87.442 Personal history of urinary calculi; Z96.0 Presence of urogenital implants; Z88.2 Allergy status to sulfonamides
CPT/HCPCS: 36415; 80048; 85027; 93005; 96360; 99285; J7030

== ENCOUNTER 2017-05-06 06:47 | Emergency (ER) | payer BC ==
[2017-05-06 07:49] LABS: INFLUENZA A PATIENT POSITIVE (NEGATIVE); INFLUENZA B PATIENT NEGATIVE (NEGATIVE); OBC FLU VALID
== END 2017-05-06 08:04 | disposition home or self-care (01) ==
LOC: ER 06:47
DX: J09.X2 Influenza due to identified novel influenza A virus with other respiratory manifestations (principal); F41.9 Anxiety disorder, unspecified; E11.9 Type 2 diabetes mellitus without complications; M79.7 Fibromyalgia; K21.9 Gastro-esophageal reflux disease without esophagitis; E78.00 Pure hypercholesterolemia, unspecified; I10 Essential (primary) hypertension; G89.29 Other chronic pain; F12.10 Cannabis abuse, uncomplicated; Z88.2 Allergy status to sulfonamides
CPT/HCPCS: 87804; 87804-59; 99284

== ENCOUNTER 2017-05-12 13:20 | Emergency (ER) | payer BC ==
[2017-05-12 13:56] LABS: POC GLUCOSE 273 mg/dL (70-99)
[2017-05-12 14:22] LABS: ADD MAN DIFF? NO
[2017-05-12 14:29] LABS: BASO # 0.1 x10^3/uL (0.0-0.2); BASO % 1 % (0-3); EOS # 0.1 x10^3/uL (0.0-0.7); EOS % 2 % (0-3); HEMATOCRIT 43.6 % (39.0-53.0); HEMOGLOBIN 15.8 g/dL (13.0-17.5); LYMPH # 1.7 x10^3/uL (1.0-4.8); LYMPH % 29 % (24-48); MEAN CORPUSCULAR HEMOGLOBIN 33 pg (25-35); MEAN CORPUSCULAR HGB CONC 36 g/dL (31-37); MEAN CORPUSCULAR VOLUME 90 fL (79-100); MONO # 0.5 x10^3/uL (0.0-1.1); MONO % 8 % (0-9); NEUT # 3.6 x10^3uL (1.8-7.7); NEUT % 60 % (31-73); PLATELET COUNT 273 x10^3/uL (140-400); RED BLOOD COUNT 4.82 x10^6/uL (4.30-5.70)
[2017-05-12 14:44] LABS: ANION GAP 13 (6-14); BLOOD UREA NITROGEN 19 mg/dL (8-26); BUN/CREATININE RATIO 15 (6-20); CALCIUM 9.7 mg/dL (8.5-10.1); CARBON DIOXIDE 25 mmol/L (21-32); CHLORIDE 99 mmol/L (98-107); CREATININE 1.3 mg/dL (0.7-1.3); GFR 57.3; GLUCOSE 274 mg/dL (70-99); POTASSIUM 3.3 mmol/L (3.5-5.1); SODIUM 137 mmol/L (136-145)
[2017-05-12 14:46] LABS: ALBUMIN/GLOBULIN RATIO 0.9 (1.0-1.7); ALK PHOS 150 U/L (46-116); ALT (SGPT) 19 U/L (16-63); AST (SGOT) 15 U/L (15-37); MAGNESIUM 1.8 mg/dL (1.8-2.4); TOTAL BILIRUBIN 0.5 mg/dL (0.2-1.0); TOTAL PROTEIN 8.7 g/dL (6.4-8.2)
[2017-05-12] MEDS: MECLIZINE HCL 12.5 MG TABLET. PO ×2 (14:46)
[2017-05-12 14:47] LABS: TROPONINI < 0.017 ng/mL (0.000-0.055)
[2017-05-12] MEDS: IPRATRPIUM/ALBUTEROL 0.5/2.5MG 3 ML NEBU. NEB ×2 (14:47)
[2017-05-12] MEDS: oxyCODONE/APAP 5/325 1 TAB TABLET PO ×2 (14:47)
[2017-05-12] MEDS: methylPREDNISolone SOD SUCC PF 125 MG/2 ML VIAL. IV ×2 (14:48)
[2017-05-12] MEDS: ONDANSETRON PF 4 MG/2 ML VIAL. IV ×2 (14:48)
[2017-05-12] MEDS: IV NORMAL SALINE 1000ML BAG 1,000 ML IV ×2 (14:49)
[2017-05-12] MEDS: KETOROLAC 15 MG/ML VIAL. IV ×2 (14:49)
[2017-05-12 14:51] LABS: NT-PRO BNP 382 pg/mL (0-124)
[2017-05-12 14:53] LABS: D-DIMER 0.34 ug/mlFEU (0.00-0.50)
[2017-05-12] MEDS: POTASSIUM CHLORIDE 20 MEQ TABLET.ER. PO ×2 (15:33)
== END 2017-05-12 15:50 | disposition home or self-care (01) ==
LOC: ER 13:20
DX: R42 Dizziness and giddiness (principal); B34.9 Viral infection, unspecified; E87.6 Hypokalemia; E78.00 Pure hypercholesterolemia, unspecified; K21.9 Gastro-esophageal reflux disease without esophagitis; M79.7 Fibromyalgia; I10 Essential (primary) hypertension; E11.9 Type 2 diabetes mellitus without complications; G89.29 Other chronic pain; F12.10 Cannabis abuse, uncomplicated; Z88.2 Allergy status to sulfonamides
CPT/HCPCS: 36415; 71045; 80053; 82962; 83735; 83880; 84484; 85025; 85379; 93005; 94640; 96361; 96374; 96375; 99285-25; J1885; J2405; J2930; J7030; J7620; J8597

== ENCOUNTER 2017-07-26 03:22 | Emergency (ER) | payer BC ==
[2017-07-26] MEDS: KETOROLAC 30 MG/ML INJ. IV (05:45)
[2017-07-26] MEDS: HYDROcodone/APAP 5/325MG 1 TAB TABLET PO (06:24)
[2017-07-26] MEDS: oxyCODONE IR 5 MG TABLET PO (07:28)
[2017-07-26 08:33] LABS: ADD MAN DIFF? NO
[2017-07-26] MEDS ORDERED: LIDOCAINE 2% 20 ML VIAL. (08:41)
[2017-07-26 08:45] LABS: ANION GAP 13 (6-14); BLOOD UREA NITROGEN 15 mg/dL (8-26); BUN/CREATININE RATIO 12 (6-20); CARBON DIOXIDE 22 mmol/L (21-32); CHLORIDE 101 mmol/L (98-107); CREATININE 1.3 mg/dL (0.7-1.3); GFR 57.3; GLUCOSE 159 mg/dL (70-99); POTASSIUM 4.1 mmol/L (3.5-5.1); SODIUM 136 mmol/L (136-145)
[2017-07-26] MEDS: LIDOCAINE 1% Multi-Dose 20 ML VIAL. INJ (08:45)
[2017-07-26] MEDS: LIDOCAINE 2% 20 ML VIAL. IJ (08:45)
[2017-07-26 08:50] LABS: BASO # 0.1 x10^3/uL (0.0-0.2); BASO % 2 % (0-3); EOS # 0.3 x10^3/uL (0.0-0.7); EOS % 4 % (0-3); HEMATOCRIT 42.2 % (39.0-53.0); LYMPH # 2.1 x10^3/uL (1.0-4.8); LYMPH % 28 % (24-48); MEAN CORPUSCULAR HEMOGLOBIN 33 pg (25-35); MEAN CORPUSCULAR HGB CONC 36 g/dL (31-37); MEAN CORPUSCULAR VOLUME 92 fL (79-100); MONO # 0.6 x10^3/uL (0.0-1.1); MONO % 8 % (0-9); NEUT # 4.5 x10^3uL (1.8-7.7); NEUT % 58 % (31-73); PLATELET COUNT 250 x10^3/uL (140-400); RED BLOOD COUNT 4.57 x10^6/uL (4.30-5.70); RED CELL DISTRIBUTION WIDTH 13.2 % (11.5-14.5); WHITE BLOOD COUNT 7.7 x10^3/uL (4.0-11.0)
[2017-07-26 08:52] LABS: ALBUMIN 3.6 g/dL (3.4-5.0); ALBUMIN/GLOBULIN RATIO 0.9 (1.0-1.7); ALK PHOS 207 U/L (46-116); ALT (SGPT) 18 U/L (16-63); AST (SGOT) 13 U/L (15-37); TOTAL BILIRUBIN 0.3 mg/dL (0.2-1.0); TOTAL PROTEIN 7.7 g/dL (6.4-8.2)
[2017-07-26 09:19] LABS: URIC ACID 6.2 mg/dL (3.5-7.2)
[2017-07-26 10:04] LABS: SEDIMENTATION RATE 10 (0-15)
== END 2017-07-26 10:01 | disposition home or self-care (01) ==
LOC: ER 03:22
DX: M25.561 Pain in right knee (principal); E11.9 Type 2 diabetes mellitus without complications; K21.9 Gastro-esophageal reflux disease without esophagitis; E78.00 Pure hypercholesterolemia, unspecified; I10 Essential (primary) hypertension; G89.29 Other chronic pain; M54.9 Dorsalgia, unspecified; F12.10 Cannabis abuse, uncomplicated; Z79.891 Long term (current) use of opiate analgesic; Z79.899 Other long term (current) drug therapy; Z88.2 Allergy status to sulfonamides
CPT/HCPCS: 20610; 36415; 73562; 80053; 84550; 85025; 85651; 86140; 96374; 96375; 99285; J1885; J2060

== ENCOUNTER 2017-08-11 21:21 | Emergency (ER) | payer BC ==
[2017-08-11 21:48] LABS: ADD MAN DIFF? NO
[2017-08-11 21:54] LABS: BILIRUBIN,URINE NEGATIVE (NEG); CLARITY,URINE CLEAR; COLOR,URINE YELLOW; GLUCOSE,URINE >=1000 mg/dL (NEG); NITRITE,URINE NEGATIVE (NEG); PH,URINE 5.5; PROTEIN,URINE NEGATIVE (NEG-TRACE); UROBILINOGEN,URINE 0.2 mg/dL (0.2 mg/dL)
[2017-08-11 21:58] LABS: ANION GAP 9 (6-14); BASO # 0.1 x10^3/uL (0.0-0.2); BASO % 1 % (0-3); BLOOD UREA NITROGEN 18 mg/dL (8-26); BUN/CREATININE RATIO 12 (6-20); CARBON DIOXIDE 28 mmol/L (21-32); CHLORIDE 100 mmol/L (98-107); CREATININE 1.5 mg/dL (0.7-1.3); EOS # 0.3 x10^3/uL (0.0-0.7); EOS % 4 % (0-3); GFR 48.6; GLUCOSE 386 mg/dL (70-99); HEMATOCRIT 39.9 % (39.0-53.0); HEMOGLOBIN 13.9 g/dL (13.0-17.5); LYMPH # 2.1 x10^3/uL (1.0-4.8); LYMPH % 30 % (24-48); MEAN CORPUSCULAR HEMOGLOBIN 32 pg (25-35); MEAN CORPUSCULAR HGB CONC 35 g/dL (31-37); MEAN CORPUSCULAR VOLUME 93 fL (79-100); MONO # 0.6 x10^3/uL (0.0-1.1); MONO % 8 % (0-9); NEUT % 57 % (31-73); PLATELET COUNT 259 x10^3/uL (140-400); POTASSIUM 3.3 mmol/L (3.5-5.1); RED BLOOD COUNT 4.31 x10^6/uL (4.30-5.70); RED CELL DISTRIBUTION WIDTH 12.9 % (11.5-14.5); SODIUM 137 mmol/L (136-145)
[2017-08-11 21:59] LABS: BACTERIA,URINE 0 /HPF (0-FEW); HYALINE CASTS, URINE FEW /HPF; RBC,URINE OCC /HPF (0-2); WBC,URINE OCC /HPF (0-4)
[2017-08-11] MEDS: ONDANSETRON PF 4 MG/2 ML VIAL. IV ×2 (22:00→23:15)
[2017-08-11] MEDS: MORPHINE SULFATE 10 MG/ML VIAL. IV ×2 (22:00→23:15)
[2017-08-11] MEDS: TAMSULOSIN 0.4 MG CAP.ER.24H. PO (22:00)
[2017-08-11] MEDS: KETOROLAC 30 MG/ML INJ. IV (22:00)
[2017-08-11 22:04] LABS: ALBUMIN 3.8 g/dL (3.4-5.0); ALK PHOS 227 U/L (46-116); ALT (SGPT) 21 U/L (16-63); AST (SGOT) 18 U/L (15-37); LIPASE 174 U/L (73-393); TOTAL BILIRUBIN 0.3 mg/dL (0.2-1.0); TOTAL PROTEIN 7.8 g/dL (6.4-8.2)
== END 2017-08-11 23:35 | disposition home or self-care (01) ==
LOC: ER 21:21
DX: N20.0 Calculus of kidney (principal); E11.65 Type 2 diabetes mellitus with hyperglycemia; F41.9 Anxiety disorder, unspecified; F32.9 Major depressive disorder, single episode, unspecified; M79.7 Fibromyalgia; K21.9 Gastro-esophageal reflux disease without esophagitis; E78.00 Pure hypercholesterolemia, unspecified; I10 Essential (primary) hypertension; G89.29 Other chronic pain; F12.10 Cannabis abuse, uncomplicated; Z87.442 Personal history of urinary calculi; Z79.4 Long term (current) use of insulin; Z88.2 Allergy status to sulfonamides
CPT/HCPCS: 36415; 74176; 80053; 81001; 83690; 85025; 96374; 96375; 96376; 99285-25; J1885; J2270; J2405

== ENCOUNTER → 2020-12-19 | Outpatient (CLI) | payer BC ==
[2017-08-11 23:01] VITALS: BP 163/93
[~2020-12-19] MED LIST changes: +ALBU2.5V8 INH; +ALPR0.5T PO; +BARIUM SULFATE 340 GM SUSPENSION. PO ONE; +BARIUM SULFATE 60% 355 ML SUSP PO ONE; +BENZ100C PO; +BUPR150T21 PO; -BUPR150T6 PO; -BUPR300T4; +BUPR300T92; +HALO5TAB PO; +HYDR-3164 PO; -HYDR-971 PO; -HYOS0.126 SL; +HYOS0.1278 SL; +LISI-130 PO; +LISI10TA16 PO; -LISI10TA2 PO; -LISI40TA PO; +MECL-75; -MECL25TA3; -METF-620 PO; +METF10007 PO; +NAPR-699 PO; -NAPR250T2 PO; +OMEP20CA16 PO; -OMEP20CA9 PO; -OMEP40CA5 PO; +OMEP40CA7 PO; +ONDA4TAB10 PO; +ONDA4TAB10 SL; +OSEL75CA PO; -OXYC-327 PO; +OXYC1TAB19 PO; -POTA10TA12 PO; +POTASSIUM CHLO10 ME1 PO; +PRED50TA PO; +SENN-182; -SENN-79; +SERT-268 PO; -SERT100T8 PO; +SIMETHICONE/SOD BICARB/CITRIC ACID PACKET. PO ONE; +TRAZ-118; -TRAZ50TA15
--- NOTE | 2020-12-19 17:18 | RAD ---
ESOPHAGRAM 12/19/2020. Reason for study: Dysphagia Comparison studies: None. Technique: Esophagram was performed utilizing double contrast upright examination, single contrast pr one examination, and cine evaluation of cervical esophageal swallow function. Findings: Barium swallow was performed without difficulty. There is deep penetration of thin contrast which remains in the laryngeal vestibule. Debris identified within the thoracic esophagus on initial swallow. This cleared with early swallows. Esophageal peristalsis and motility were normal. No mucos al abnormalities. No gastroesophageal reflux small sliding-type hiatal hernia. No esophageal divertic ulum. Fundus of the stomach was unremarkable. Fluoroscopy time: 1.8 minutes Number of images: 11 IMPRESSION: 1. Deep penetration of thin contrast which remains in the laryngeal vestibule. 2. Debris identified within the thoracic esophagus on initial swallow. This cleared with early swallo ws. 3. Small sliding-type hiatal hernia. Electronically signed by: Lolita Lynch MD (12/19/2020 5:15 PM) [id number]
== END ==
LOC: RAD 08:47
DX: K44.9 Diaphragmatic hernia without obstruction or gangrene (principal); R13.10 Dysphagia, unspecified; F03.90 Unspecified dementia, unspecified severity, without behavioral disturbance, psychotic disturbance, mood disturbance, and anxiety
CPT/HCPCS: 74220